=== PATIENT | female | born 1950 | race Caucasian/White ===

== ENCOUNTER 2016-09-24 22:22 | Inpatient (IN) | payer MEDICARE ==
[~2016-09-24] VITALS: Ht 165.1 cm; Wt 86.2 kg
[~2016-09-24 22:22] MED LIST: ATENOLOL (*) 2525 MG PO; ESTR1PAT10 TD; ESTR1POW11 MC; FLONASE; HCTZ25 PO; HYDR1TAB69 PO; LANS15CA24 PO; LRZ.5T1 PO; MULT-1007 PO; [UNRECOGNIZED DRUG - CODE] PO
[2016-09-24 22:27] VITALS: BP 126/67; PULSE 77; RESP 18; O2SAT 97
[2016-09-24] MEDS ORDERED: 0.9% Sodium Chloride 1,000 ML IV ONE (23:19)
[2016-09-24] MEDS ORDERED: HYDROmorphone 1 mg/mL Inj IVPUSH PRN (23:20)
[2016-09-24] MEDS ORDERED: Ondansetron 2 mg/mL 2 mL Inj IVPUSH ONE (23:20)
--- NOTE | 2016-09-24 23:21 | ED.REPORT ---
HPI-Extremity Problem Lower Date of Service Sep 24, 2016 ED Provider: Seth Gonzalez MD A 65 year old female with a medical history including hypertension, spinal stenosis, and GERD presents to the ED via EMS with a right ankle injury after a mechanical ground level fall just prior to arrival. The patient slipped in her kitchen. She denies hitting her head or losing consciousness and has no other complaints at this time. EMS noted an obvious right ankle deformity en route. Nursing Notes Stated Complaint: ANKLE INJURY Chief Complaint: Extremity Trauma Nursing Notes Reviewed: Yes Allergies: Coded Allergies: Penicillins (Verified Allergy, Unknown, 09/24/16) celecoxib (Verified Allergy, Unknown, 09/24/16) Scheduled Atenolol (Atenolol) 25 Mg Tablet 25 MG PO DAILY Estradiol Patch (Isa) 1 Each Patch.tdsw 1 EACH TRANSDERM WEEKLY Hydrochlorothiazide (Hydrochlorothiazide) 25 Mg Tablet 25 MG PO DAILY Lansoprazole (Lansoprazole) 30 Mg Capsule.dr 15 MG PO DAILY Multivitamin (Multivitamins) 1 Each Capsule 1 EACH PO DAILY Trazodone (Trazodone) 150 Mg Tablet 200 MG PO HS Scheduled PRN Fluticasone Propionate (Flonase Allergy Relief) 50 Mcg/Actuation [place].susp 9.9 ML NS BID PRN PRN For Congestion Hydrocodone-Acetaminophen 5-325 mg (Hydrocodone-Acetaminophen 5-325 mg) 1 Each Tablet 1-3 TABLET PO DAILY PRN PRN For Pain Lorazepam (Lorazepam) 1 Mg Tablet 1-1.5 MG PO HS PRN PRN For Insomnia General Time Seen by MD: 22:50 Chief Complaint Ankle injury right Hx Obtained From: Patient Arrived By: Ambulance Onset Occurred: Just prior to arrival Symptom Duration: Since onset Caused by: Accidental, Fall on ground Location: : Ankle right Quality: Painful Severity: Current: Moderate Severity: Maximum: Moderate Associated with: Denies: Fever Pertinent Negative: Relieved by nothing Immunizations: Tetanus w/in 5 - 10 yrs Recent Healthcare: No recent doctor visit Past Medical History Past Medical History Hypertension GERD Insomnia 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 Respiratory: Reports: Non-productive cough (Baseline), Denies: Shortness of breath Physical Exam Physical Exam Notes: Initial Vital Signs Vital Signs (First) Date Time Temp Pulse Resp B/P Pulse Ox O2 Delivery O2 Flow Rate FiO2 09/24/16 22:27 37.0 77 18 126/67 97 Room Air Initial VS: Reviewed Head / Eyes: Atraumatic, Normocephalic ENT: Conjunctiva normal, No scleral icterus Neck: Supple, Full range of motion Skin: Warm, Dry, No cyanosis Neurologic: Alert, Oriented, Nonfocal Psychiatric: Mood/affect normal, Behavior normal, Normal thought content Lower Extremity / Pelvis / MS: Neurologic intact, Vascular intact Ankle / Foot: Neurologic intact, Vascular intact Right Foot: Positive: Deformity present (Grossly laterally displaced, Skin intact), Tenderness present... General/Constitutional: Awake, Alert Interpretation & Diagnostics Lab Results Interpretation Result Diagram: 09/25/16 0550 09/25/16 0550 Test 09/24/16 23:57 Prothrombin Time 11.3sec (8.1-12.5) Prothromb Time International Ratio 1.05ratio Hold [place] Top Tube Received (Received) ECG Interpretation ECG Interpretation: Sinus rhythm rate 90 Anteroseptal infarct, age indeterminant Time: 01:05 Interpreted by: ED physician X-Ray Chest Interpretation Chest Xray Interpretation: Scarring of left pleura, similar to previous Left breast implant View: Portable, 1 view Interpretation / Wet Read by: Wet read ED physician X-Ray Interpretation Xray Interpretation: Bimalleolar fracture with lateral dislocation Study Performed: 3 View X-Ray Ordered: Ankle right Interpretation / Wet Read by: Wet read ED physician Xray Interpretation: Reduction achieved and splint in place Study Performed: 2 View X-Ray Ordered: Ankle right Interpretation / Wet Read by: Wet read ED physician Procedures Procedure Notes: Ankle reduced as described. There was significant force causing dislocation and requiring firm pressure during reduction to allow the cast material to set up. Ultimately, fairly good position was achieved. Neurovascular intact pre-and post. Reduction Dislocated Ankle Right ankle drawn out to length and relocated medially. Held forcibly until cast material was in place to prevent returning to dislocated position. Time: 00:06 Procedure Performed by: ED physician Consent / Setup: Consent from patient, Time-out performed, Pulse oximeter applied, parts processor applied, Hand hygiene observed, Stand sterile technique Which Ankle and Technique: Right ankle Neurovascular: Intact pre-procedure, Intact post-procedure Post-Procedure / Complications: Reduced per examination, Procedure successful, X-ray disloc reduced, Posterior splint applied (Preceded by stirrup), Condition improved, Tolerated procedure well, Patient stable Splint Application - Fx Mgt Time: 00:10 Procedure Performed by: ED physician, Tail Puller Precise Anatomic Location: Right ankle Type of Immobilization: Ortho-glass (Mid-thigh to foot and stirrup), Posterior short leg Post-Procedure / Complications: Cap refill normal, Post splint vascular nl, Post splint neuro nl, Condition improved, Tolerated procedure well, Patient stable Re-Eval/Medical Decision Med Decision/Clinical Course 65-year-old with a bimalleolar fracture and dislocation of the right ankle. Admitted for surgical management. Source of Hx: Old records Re-Evaluation/Progress #1: Time of Eval: 00:06 Patient Status: Condition improved Re-Evaluation/Progress Note: Ankle reduction performed. Re-Evaluation/Progress #2: Time of Eval: 01:06 Patient Status: Condition improved Re-Evaluation/Progress Note: Discussed with patient x-ray and lab results, diagnosis, and plan for admit. Patient agrees with plan for care and all questions were addressed. Consultation #1: Referral / Consult Name: Seth Hargrove MD Consulted With: Orthopedic Call Returned at: 00:45 Bottom Stop Attacher: Will see patient (Tomorrow), Agrees with eval, Agrees with plan Consultation #2: Referral / Consult Name: Rolan Shine MD Consulted With: Hospitalist Call Returned at: 00:51 Bottom Stop Attacher: Agrees with eval, Agrees with plan, Accepts admit Counseled Regarding: Diagnosis, Lab results, Need for admission Discharge & Departure Shift Change Sign-Out Response to Therapy: Improved Impression: Primary Impression: Closed right ankle fracture Encounter type: initial encounter Qualified Code: S82.891A - Other fracture of right lower leg, initial encounter for closed fracture Additional Impression: Dislocation of right ankle joint Encounter type: initial encounter Qualified Code: S93.04XA - Dislocation of right ankle joint, initial encounter Disposition: ADMITTED TO HOSPITAL Discharge Condition All VS Reviewed: Yes Condition: Improved Referrals: Skinny Blackwood MD (PCP) Minal Attestation Portions of this note were transcribed by Vicenta Romero. I, Dr. Gonzalez, personally performed the history, physical exam, and medical decision-making; I reviewed and confirmed the accuracy of the information in the transcribed note. Signed by: Minal Mederos, 09/25/2016, 04:30 copies to: Skinny Blackwood MD, Christopher W MD Sep 24, 2016 23:21 VICENTA ROMERO Sep 25, 2016 00:17 X-Ray Interpretation Xray Interpretation: Bimalleolar fracture with lateral dislocation Study Performed: 3 View X-Ray Ordered: Ankle right Interpretation / Wet Read by: Wet read ED physician Xray Interpretation: Reduction achieved and splint in place Study Performed: 2 View X-Ray Ordered: Ankle right Interpretation / Wet Read by: Wet read ED physician Procedures Reduction Dislocated Ankle Right ankle drawn out to length and relocated medially. Held forcibly until cast material was in place to prevent returning to dislocated position. Time: 00:06 Procedure Performed by: ED physician Consent / Setup: Consent from patient, Time-out performed, Pulse oximeter applied, parts processor applied, Hand hygiene observed, Stand sterile technique Which Ankle and Technique: Right ankle Neurovascular: Intact pre-procedure, Intact post-procedure Post-Procedure / Complications: Reduced per examination, Procedure successful, X-ray disloc reduced, Posterior splint applied (Preceded by stirrup), Condition improved, Tolerated procedure well, Patient stable Splint Application - Fx Mgt Time: 00:10 Procedure Performed by: ED physician, Tail Puller Precise Anatomic Location: Right ankle Type of Immobilization: Ortho-glass (Mid-thigh to foot and stirrup), Posterior short leg Post-Procedure / Complications: Cap refill normal, Post splint vascular nl, Post splint neuro nl, Condition improved, Tolerated procedure well, Patient stable Re-Eval/Medical Decision Source of Hx: Old records Re-Evaluation/Progress #1: Time of Eval: 00:06 Patient Status: Condition improved Re-Evaluation/Progress Note: Ankle reduction performed. Re-Evaluation/Progress #2: Time of Eval: 01:06 Patient Status: Condition improved Re-Evaluation/Progress Note: Discussed with patient x-ray and lab results, diagnosis, and plan for admit. Patient agrees with plan for care and all questions were addressed. Consultation #1: Referral / Consult Name: Seth Hargrove MD Consulted With: Orthopedic Call Returned at: 00:45 Bottom Stop Attacher: Will see patient (Tomorrow), Agrees with eval, Agrees with plan Consultation #2: Referral / Consult Name: Rolan Shine MD Consulted With: Hospitalist Call Returned at: 00:51 Bottom Stop Attacher: Agrees with eval, Agrees with plan, Accepts admit Counseled Regarding: Diagnosis, Lab results, Need for admission Discharge & Departure Impression: Primary Impression: Closed right ankle fracture Encounter type: initial encounter Qualified Code: S82.891A - Other fracture of right lower leg, initial encounter for closed fracture Additional Impression: Dislocation of right ankle joint Encounter type: initial encounter Qualified Code: S93.04XA - Dislocation of right ankle joint, initial encounter Disposition: ADMITTED TO HOSPITAL Discharge Condition All VS Reviewed: Yes Condition: Improved Referrals: Skinny Blackwood MD (PCP) Marieiblars Attestation Portions of this note were transcribed by Vicenta Romero. I, Dr. Gonzalez, personally performed the history, physical exam, and medical decision-making; I reviewed and confirmed the accuracy of the information in the transcribed note. Signed by: Minal Mederos, 09/25/2016, 04:30 copies to: Skinny Blackwood MD, Christopher W MD Sep 24, 2016 23:21 VICENTA ROMERO Sep 25, 2016 00:17
[2016-09-25] VITALS (7 sets, daily range): BP systolic 110–137; BP diastolic 70–89; PULSE 67–113; RESP 16–18; O2SAT 94–96
[2016-09-25 00:07] LABS: BASOPHILS % (AUTO) 0.3 % (0-3); EOSINOPHILS % (AUTO) 0.6 % (0-5); MONOCYTES % (AUTO) 8.3 % (4-12); Mean Corpuscular Hemoglobin 34.6 pg (27.0-35.0); Mean Corpuscular Volume 101.2 fL (81-100); NEUTROPHILS % (AUTO) 63.6 % (40-74); Platelet Count 140 bil/L (150-400)
[2016-09-25 00:34] LABS: INR 1.05 ratio
[2016-09-25] MEDS ORDERED: Polyethylene Glycol (PEG) 17 Gm Powder PO PRN (01:45)
[2016-09-25] MEDS ORDERED: Ondansetron 2 mg/mL 2 mL Inj IVPUSH PRN (01:45)
[2016-09-25] MEDS ORDERED: Alum-Mag Hydrox-Simeth 30 mL Suspension PO PRN (01:45)
[2016-09-25] MEDS: Heparin 5,000 Unit/mL Inj SUBQ SCH ×3 (01:45→18:39)
[2016-09-25] MEDS ORDERED: HYDROmorphone 0.5 mg/0.5 mL iSecure Syringe IVPUSH PRN (01:50)
[2016-09-25] MEDS ORDERED: KCl 40 mEq/D5W 500 mL 40 MEQ in IV Premix 1 EACH IV ONE ×2 (02:20→03:05)
[2016-09-25] MEDS ORDERED: Potassium Chloride 20 mEq SR Tablet PO ONE (02:25)
[2016-09-25] MEDS: 0.9% Sodium Chloride 1,000 ML IV SCH ×3 (02:30→21:45)
--- NOTE | 2016-09-25 02:35 | PCM.HPMED ---
Subjective Date of Service Sep 25, 2016 Primary Provider: Admitting Physician: Rolan Shine MD Primary Care Physician: Skinny Blackwood MD Attending Physician: Rolan Shine MD Admit Status: From the Emergency Department Chief Complaint: right ankle fracture History of Present Illness: 65-year-old female patient with history of hypertension, insomnia, neuropathy, GERD who presented to the ER following mechanical ground-level fall and right ankle pain. Patient reports that she got up in the middle the night to go to her kitchen to get a snack, and was wearing socks and slipped on the linoleum. Patient reports that she suspects she fell to her side and instantly felt significant pain on her right ankle. Patient denies any loss of consciousness at the time of her fall. Patient reports that she does not use any assistive devices for walking, such as a cane or walker. Patient reports that she is independent at baseline, and independent in all of her ADLs. Patient denies any chest pain, shortness of breath, nausea, vomiting, diarrhea, palpitations, dizziness or other symptoms. Patient states her only complaint is right ankle pain. Patient reports that she did take all of her nighttime medications, which include trazodone, lorazepam, gabapentin. Vital signs in the ER, temperature 37, pulse 77, respiratory rate 18, blood pressure 126/67, pulse ox 97 on room air. Review of Systems: A comprehensive review of systems was conducted with the patient and found to be negative except as above in the History of Present Illness. 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 Chronic back pain Chronic opiate use Diverticulosis Cervical spine stenosis Lumbar spine stenosis PUD Squamous cell carcinoma of the face Surgical History Hysterectomy Breast augmentation Deflation of bilateral breast implants Appendectomy Rhinoplasty Zygomatic cheek implants Social History Occupation: disabled Hx Alcohol Use: Yes (12 ounces of wine nightly) Hx Substance Use: No Hx Tobacco Use: Yes (quit over 50 years ago) Smoking Status: Former Smoker Living Arrangement: Alone Exam Vital Signs Vital Sign - Last Date Time Temp Pulse Resp B/P Pulse Ox O2 Delivery O2 Flow Rate FiO2 09/25/16 01:07 36.7 90 18 122/75 94 Room Air Intake and Output 09/24/16 09/24/16 09/25/16 Cumulative From/Thru 15:00 23:00 07:00 09/24/16 22:27 - 09/24/16 23:56 Intake Total 1000 ml 1000 ml Balance 1000 ml 1000 ml Intake IV Total 1000 ml 1000 ml Exam General: No acute distress, well-developed, well-nourished, appropriately interactive HEENT: Normocephalic, atraumatic. Tattooed eyeliner. External ears without defect. Pupils equal, round, and reactive to light and accommodation. Moist conjunctivae. Oropharynx with slightly dry mucosa. Neck: Supple with full range of motion.No lymphadenopathy Cardiovascular: Regular rate and rhythm with no murmurs, rubs, or gallops appreciated Pulmonary: Clear to auscultation bilaterally with no crackles, wheezes, or rhonchi. Normal respiratory effort with no use of accessory muscles. Abdomen: Bowel tones present. Soft, nontender, nondistended. Extremities: Right lower extremity in soft cast with bandages, neurovascularly intact, appropriate capilarry refill, intact sensation. Normal left lower extremity exam. No clubbing, cyanosis, edema, appreciated. Skin: Normal temperature, turgor, and texture; no rash, ulcers, or subcutaneous nodules appreciated. Psychiatric: Normal mood and affect. Alert and oriented to person, place, and time. Lab and Diagnostics Result Diagram: 09/24/16235609/24/162356 X-Rays, CTs and MRIs Right ankle [id number] radiology report pending Chest [id number] radiology report pending 12-lead ECG Normal sinus rhythm, rate of 91 Assessment & Plan Acute closed right ankle fracture secondary to mechanical ground level fall, present on admission, ongoing -EKG was normal, did not demonstrate any arrhythmias. -Patient has remained hemodynamically stable, no evidence of hypotension -Xrays demonstrate fracture. Awaiting formal radiology report on xrays -Ankle was reduced in the ER by ER physician -Ortho was consulted by ER, and will evaluate patient in the AM -Dilaudid prescribed for pain management -NPO in case pt requires surgery -IVF NS 100mls/hr -Physical therapy evaluation ordered Acute hypokalemia, present on admission, ongoing -Potassium 3.2 on admission -40meq KCl IV given -Recheck labs in AM, replenish as appropriate Transaminitis, chronicity unknown, present on admission, ongoing -AST and ALT elevated, 53 & 50 respectively -No records to compare previous values -Continue to monitor with AM labs -Consider avoiding hepatotoxic medications Chronic macrocytosis,present on admission, ongoing -MCV of 101.2 on admission -Records demonstrate elevation in 2013 -May be due to alcohol use -Recommend outpatient follow up Chronic hypertension, present on admission, ongoing, presumed stable. -Restart home medications once medication reconciliation is completed. 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 GERD with history of PUD, present on admission, ongoing, presumed stable. -Restart home medications once medication reconciliation is completed. PCP: Dr Blackwood Code Status: DNR/DNI. Discussed and confirmed with patient DVT prophylaxis: Heparin q 8hrs Patient is admitted under inpatient status with expected length of stay greater than 2 midnights due to severity of presenting symptoms, risk of adverse event, and complexity of treatment plan. Pain Evaluation: Adequate Pain Control VTE Prophylaxis: Sub-Q Heparin (Unfractionated) Resuscitation Status: DNR/DNI:Do Not Resuscitate/Intubate Attending Statement The patient was seen and examined together with Dr. Tang on 09/25 and I agree with the history, exam and plan as outlined in the note above. copies to: Skinny Blackwood MD, Tara L DO Sep 25, 2016 02:35 Rolan Shine MD Sep 25, 2016 04:38
[2016-09-25] MEDS ORDERED: ATEN25TA PO (05:29)
[2016-09-25] MEDS ORDERED: ESTR1PAT44 TRANSDERM (05:31)
[2016-09-25] MEDS ORDERED: FLUT9.9S NS (05:33)
[2016-09-25] MEDS ORDERED: HYDR25TA4 PO (05:38)
[2016-09-25] MEDS ORDERED: HYDR-4003 PO (05:38)
[2016-09-25] MEDS ORDERED: LANS30CA PO (05:39)
[2016-09-25] MEDS ORDERED: LORA1TAB PO (05:40)
[2016-09-25] MEDS ORDERED: MULT1CAP33 PO (05:41)
[2016-09-25] MEDS ORDERED: TRAZ150T72 PO (05:42)
--- NOTE | 2016-09-25 05:54 | NUR ---
admit pt arrived to room 1009 at 0205. she was transferred from [facility] to bed with sliding board. she is alert and oriented x3. on RA and VSS. R leg is splinted and wrapped in otilia wrap. toes are warm, pt can wiggle them and denies numbness and tingling. pt was able to get up to the BSC to void with 1 person assist and using the FWW. she received 1mg of IV dilaudid for pain. patient is receiving potassium via IV. she is currently resting comfortably. NPO for surgery today. care continues.
[2016-09-25 06:20] LABS: BASOPHILS % (AUTO) 0.4 % (0-3); EOSINOPHILS % (AUTO) 0.3 % (0-5); MONOCYTES % (AUTO) 9.2 % (4-12); Mean Corpuscular Hemoglobin 34.9 pg (27.0-35.0); Mean Corpuscular Volume 103.3 fL (81-100); NEUTROPHILS % (AUTO) 67.7 % (40-74); Platelet Count 136 bil/L (150-400)
[2016-09-25] MEDS: fentaNYL-PF 50 mCg/mL 2 mL Inj IVPUSH PRN ×4 (07:25→23:03)
--- NOTE | 2016-09-25 07:29 | PCM.CONORT ---
Subjective Surgeon Admitting Provider:Rolan Shine MD Attending Provider:Rolan Shine MD Primary Care Physician:Skinny Blackwood MD Other Provider: Reason for Consultation: Right ankle pain Allergy Allergies: Coded Allergies: Penicillins (Verified Allergy, Unknown, 09/24/16) celecoxib (Verified Allergy, Unknown, 09/24/16) Medications Atenolol (Atenolol) 25 Mg Tablet 25 MG PO DAILY (Reported) Last Taken: Unknown Dose on 09/24/16 0800 Estradiol Patch (Isa) 1 Each Patch.tdsw 1 EACH TRANSDERM WEEKLY (Reported) Last Taken: Unknown Dose on 09/21/16 Fluticasone Propionate (Flonase Allergy Relief) 50 Mcg/Actuation Richardson.susp 9.9 ML NS BID PRN PRN For Congestion (Reported) Last Taken: Unknown Dose on 09/24/16 0800 Gabapentin (Gabapentin) 600 Mg Tablet 600 MG PO HS (Reported) Last Taken: Unknown Dose on 09/24/16 Hydrochlorothiazide ( Hydrochlorothiazide) 25 Mg Tablet 12.5 MG PO DAILY (Reported) Last Taken: Unknown Dose on 09/24/16 0900 Hydrocodone-Acetaminophen 5-325 mg (Hydrocodone-Acetaminophen 5-325 mg) 1 Each Tablet 1-3 TABLET PO DAILY PRN PRN For Pain (Reported) Last Taken: Unknown Dose on 09/24/16 1600 Lansoprazole (Lansoprazole) 30 Mg Capsule.dr 15 MG PO DAILY (Reported) Last Taken: Unknown Dose on 09/24/16 0800 Lorazepam (Lorazepam) 1 Mg Tablet 1 -1.5 MG PO HS PRN PRN For Insomnia (Reported) Last Taken: Unknown Dose on 09/24/161999 Multivitamin (Multivitamins) 1 Each Capsule 1 EACH PO DAILY (Reported) Last Taken: Unknown Dose on 09/24/16 0800 Trazodone (Trazodone) 150 Mg Tablet 200 MG PO HS (Reported) Last Taken: Unknown Dose on 09/24/161999 Discontinued Medications Atenolol-Expunged Drug, Do Not Renew! (Atenolol-Expunged Drug, Do Not Renew!) 25 Mg Tab 25 MG PO DAILY (Reported) Last Taken: Unknown Dose on 09/24/16 0800 Estradiol Hemihydrt,Micronized ( Estradiol) 1 Gm Powder 1 GM MC DAILY (Reported) Estradiol-Expunged Drug, Do Not Renew! (Sogrqbm-Unr-Lveslxny Drug, Do Not Renew! ) 1 Patch.bwk Patch.tdsw 1 PATCH.BWK TD QW (Reported) Every Tuesdays Last Taken: Unknown Dose on Unknown Date & Time FLUTICASONE-Expunged Drug, Do Not Renew! (FLONASE-Expunged Drug, Do Not Renew!) 120 Sprays/16 Gm Aero 2 SPRAYS NA PRN (Reported) Last Taken: Unknown Dose on 09/24/16 0800 Hydrochlorothiazide-Expunged, Do Not Renew! (Hydrochlorothiazide-Expunged, Do Not Renew!) 25 Mg Tablet 12.5 MG PO DAILY (Reported) Last Taken: Unknown Dose on 09/24/16 0800 Hydrocod/APAP-Expunged, Do Not Renew! (VICODIN-Expunged Drug, Do Not Renew) 1 Tab Tab 1-3 TAB PO DAILY PRN PRN For Pain (Reported) Last Taken: Unknown Dose on 09/24/16 1600 Lansoprazole-Expunged Drug, Do Not Renew! (Lansoprazole-Expunged Drug, Do Not Renew!) 15 Mg Capsule.dr 15 MG PO DAILY (Reported) Last Taken: Unknown Dose on 09/24/16 0800 Lorazepam-Expunged Drug, Do Not Renew! (Lorazepam-Expunged Drug, Do Not Renew!) 0.5 Mg Tab 1-1.5 MG PO HSP ( Reported) Last Taken: Unknown Dose on 09/24/161999 Multivitamin (Multi-Vitamin Daily) 1 Each Tablet 1 EACH PO DAILY (Reported) Last Taken: Unknown Dose on 09/24/16 0800 Trazodone-Expunged Drug, Do Not Renew! (Trazodone-Expunged Drug, Do Not Renew!) 100 Mg Tab 200 MG PO HS ( Reported) Last Taken: Unknown Dose on 09/24/161999 History History of ENT Problems?: Yes HEENT History: Positive for:: Cataracts Hx of Heart Problems?: Yes Cardiovascular History: Positive for:: Hypertension Denies:: Congestive Heart Failure Hx of Respiratory Problem?: No Respiratory History: Denies:: Tuberculosis Hx Neurologic Problems?: No Hx of GI Problems?: Yes Gastrointestinal History: Positive for:: Heartburn ("every once in a while") Hx of Problems?: No HX of Peritoneal Dialysis: No Female Hx: Denies:: Currently Endometriosis Pelvic Inflammatory Problems with Breasts? Hx Musculoskeletal Problems?: Yes Musculoskeletal History: Positive for:: Back Injury (chronic back pain, spinal stenosis, ) Musculoskeletal Trauma (metartasal in R foot) Denies:: Joint Replacement Other History/Comment Lucie Mcguire is a 65-year-old female patient who presents for a orthopedic consult evaluation of their right ankle with ongoing symptoms. The patient states that their pain is a shoulder in nature and mild/moderate in severity localized to the medial and lateral aspect of the ankle without radiation. This has been progressing over the past few hours after she slipped and fell at home. Moreover, the pain is exacerbated by activities, especially with on movement. Rest seems to improve the symptoms. Patient reports some popping, no catching, no locking, or giving way previously. Previous treatment has included : Splint placed in the ER.There is no reports numbness, tingling, or weakness to the affected distal lower extremity. The patient denies any fever, chills, nausea, vomiting, chest pain, shortness of breath, or calf tenderness. Work/ hobbies/sports include: With a home alone She reports a history of electrolyte imbalances and elevated liver enzymes. She reports that she may or may not have had a heart attack in the past Hx of Psycho/Social Problems?: No Hx Surgeries?: Yes (appendectomy, breast modification) Hx Any Other Health Problems?: No Other History: Positive for:: Hospitalization (bleeding ulcers) History Blood Transfusions: Positive for:: Accept Blood Products? Blood Transfusions Denies:: Blood Transfuse Reaction Hx Diabetes: No Occupation: disabled Hx Alcohol Use: Yes (12 ounces of wine nightly)Hx Substance Use: No Smoking Status: Former Smoker Have You Smoked inLast 12 mo: No Objective Exam Vital Signs & I/O Vital Sign- Last 8 Hours Date Time Temp Pulse Resp B/P Pulse Ox O2 Delivery O2 Flow Rate FiO2 09/25/16 04:55 36.7 110 17 125/72 94 Room Air 09/25/16 02:05 36.8 92 17 124/72 94 Room Air 09/25/16 01:07 36.7 90 18 122/75 94 Room Air Intake and Output- Last 8 Hour 09/25/16 Cumulative From/Thru 07:00 09/24/16 22:27 - 09/25/16 04:55 Intake Total 1000 ml 1000 ml Output Total 300 ml 300 ml Balance 700 ml 700 ml Intake Oral 0 ml 0 ml IV Total 1000 ml 1000 ml Output Urine Total 300 ml 300 ml # Bowel Movements 0 0 Lab & Micro Results Laboratory Tests Test 09/24/16 23:57 09/25/16 05:50 White Blood Count 6.6th/mm3 (3.8-10.1) 7.8th/mm3 (3.8-10.1) Red Blood Count 4.16mil/mm3 (3.90-5.20) 3.90mil/mm3 (3.90-5.20) Hemoglobin 14.4g/dL (12.0-15.6) 13.6g/dL (12.0-15.6) Hematocrit 42.1% (35.0-46.0) 40.3% (35.0-46.0) Mean Corpuscular Volume 101.2fL (81-100) 103.3fL (81-100) Mean Corpuscular Hemoglobin 34.6pg (27.0-35.0) 34.9pg (27.0-35.0) Mean Corpuscular Hemoglobin Concent 34.2% (32.0-37.0) 33.7% (32.0-37.0) Red Cell Distribution Width 12.4% (12.3-15.4) 12.5% (12.3-15.4) Platelet Count 140bil/L (150-400) 136bil/L (150-400) Neutrophils (%) (Auto) 63.6% (40-74) 67.7% (40-74) Lymphocytes (%) (Auto) 26.9% (14-46) 22.1% (14-46) Monocytes (%) (Auto) 8.3% (4-12) 9.2% (4-12) Eosinophils (%) (Auto) 0.6% (0-5) 0.3% (0-5) Basophils (%) (Auto) 0.3% (0-3) 0.4% (0-3) Prothrombin Time 11.3sec (8.1-12.5) Prothromb Time International Ratio 1.05ratio Sodium Level 134mEq/L (134-144) 139mEq/L (134-144) Potassium Level 3.2mEq/L (3.5-5.2) 4.1mEq/L (3.5-5.2) Chloride Level 92mEq/L (97-108) 97mEq/L (97-108) Carbon Dioxide Level 26mmol/L (18-29) 27mmol/L (18-29) Blood Urea Nitrogen 11mg/dL (8-27) 10mg/dL (8-27) Creatinine 0.72mg/dL (0.57-1.00) 0.73mg/dL (0.57-1.00) Estimat Glomerular Filtration Rate 116mL/min (>59) 114mL/min (>59) Glucose Level 149mg/dL (60-99) 124mg/dL (60-99) Calcium Level 8.6mg/dL (8.5-10.1) 8.3mg/dL (8.5-10.1) Total Bilirubin 0.5mg/dL (0.0-1.2) 0.8mg/dL (0.0-1.2) Aspartate Amino Transf (AST/SGOT) 53U/L (0-50) 44U/L (0-50) Alanine Aminotransferase (ALT/SGPT) 50U/L (0-32) 45U/L (0-32) Alkaline Phosphatase 66U/L (25-165) 60U/L (25-165) Total Protein 6.8g/dL (6.4-8.4) 6.3g/dL (6.4-8.4) Albumin 4.1g/dL (3.4-5.0) 4.0g/dL (3.4-5.0) Hold Buckley Top Tube Received (Received) Result Diagram: 09/25/1650 09/25/16 0550 Review of Systems: Constitutional: Negative, except as otherwise mentioned in the history above. Ophthalmologic: Negative, except as otherwise mentioned in the history above. Cardiovascular: Negative, except as otherwise mentioned in the history above. Respiratory: Negative, except as otherwise mentioned in the history above. Gastrointestinal: Negative, except as otherwise mentioned in the history above. Genitourinary: Negative, except as otherwise mentioned in the history above. Musculoskeletal: Negative, except as otherwise mentioned in the history above. Neurological: Negative, except as otherwise mentioned in the history above. Psychiatric: Negative, except as otherwise mentioned in the history above. Hematologic/Lymphatic: Negative, except as otherwise mentioned in the history above. Allergic/Immunologic: Negative, except as otherwise mentioned in the history above. H&P Surgical Exam Exam Musculoskeletal: CONST: WD,WN, NAD, A+OX3 OCULAR: EOMI, no conjunctivitis/icterus ENT: no deformities, scars or lesions CARDIAC: Pulse is regular. No cyanosis,clubbing,edema RESP: regular,unlabored MSK: normal light touch SPN/DPN/TN distributions. 5/5 DF/PF/Inv/Ev, 2+ DP Right Foot/Ankle - scars, ++ swelling, + ecchymosis, - atrophy or asymmetry. TTP medial lateral joint line alignment- neutral, gait: antalgic, edema- minimal ROM Strength/ Pain na + effusion, +painful arc, +crepitus Signs na Additional Information Three-view x-ray of the right ankle demonstrates trimalleolar fracture dislocation with reduction. H&P Preop Plan Impression right closed ankle fracture dislocation, trimalleolar Problems: Risks & Benefits * We have reviewed the risks and benefits as well as the alternatives to surgery. All questions were answered to the patient's satisfaction and a counseling note to that effect. The patient has provided informed consent. * I have counseled the patient regarding the deleterious effects that smoking during the perioperative period can have upon wound healing, infection rates, and the overall rate of complications. Plan NWB LLE Encouraged nutrition by mouth today We will change long-leg splint to short leg splint prior to discharge keep elevated Continue medical management per primary Patient to follow up in clinic on Wednesday or of next week cardiac clearance for surgery please Surgery tentatively scheduled for next 10/02/2016 pending soft tissue examination. oral pain meds as needed d/c home and f/u in clinic next week to assess soft tissue swelling plan for ORIF in 1-2 weeks once soft tissue envelope stable please call with questions Seth Hargrove MD Sep 25, 2016 07:29
[2016-09-25 08:04] LABS: APPEARANCE,URINE CLEAR (CLEAR,HAZY); COLOR,URINE YELLOW (YELLOW); PH,URINE 5.5 (5.0-8.0)
[2016-09-25 08:05] LABS: OCCULT BLOOD,URINE NEGATIVE (NEGATIVE); UROBILINOGEN,URINE NORMAL (NORMAL)
[2016-09-25] MEDS ORDERED: GABA600T2 PO (08:30)
--- NOTE | 2016-09-25 09:57 | DRSVH ---
PROCEDURE: X-RAY RIGHT ANKLE, MINIMUM THREE VIEWS ([id number]) INDICATIONS: ankle deformity TECHNIQUE: 3 views of the ankle were acquired. COMPARISON: None. FINDINGS: Bones: Complex, trimalleolar right ankle fracture/dislocation is present with roughly 1/4 bone shaft diameter of lateral subluxation of the talus relative to the tibial plafond. There is moderate later al displacement of the distal fibular fracture component as well as the tip of the medial malleolus. Minimal displacement of the posterior malleolar component. Soft tissues: Joint effusion and circumferential soft tissue swelling. IMPRESSION: Complex trimalleolar right ankle fracture/disloc Dictated by: Ramsey Dixon [facility] Interpreted: Abraham Bustamante MD on 09/25/2016 at 9:55 Transcribed by: PEPPER on 09/25/2016 at 9:57 Approved by: Abraham Bustamante M.D. on 09/25/2016 at 16:21
--- NOTE | 2016-09-25 10:01 | DRSVH ---
PROCEDURE: X-RAY CHEST ONE VIEW, PORTABLE ([id number]) INDICATIONS: fx ankle TECHNIQUE: One view of the chest was acquired. COMPARISON: [facility], CHEST 2VW, 07/02/2016, 11:04 AM. FINDINGS: Surgical changes and devices: Peripherally calcified left breast implant redemonstrated.. Lungs and pleura: No pleural effusions or pneumothorax. Lungs are clear. Mediastinum: Mediastinal contours appear normal. Heart size is normal. Bones and chest wall: No suspicious bony lesions. Overlying soft tissues appear unremarkable. IMPRESSION: No acute cardiopulmonary disease. Dictated by: Ramsey Dixon [facility] Interpreted: Abraham Bustamante MD on 09/25/2016 at 9:59 Transcribed by: PEPPER on 09/25/2016 at 10:01 Approved by: Abraham Bustamante M.D. on 09/25/2016 at 16:21
--- NOTE | 2016-09-25 10:06 | DRSVH ---
PROCEDURE: X-RAY RIGHT ANKLE, TWO VIEWS ([id number]) INDICATIONS: postreduction TECHNIQUE: 3 views of the ankle were acquired. COMPARISON: [facility], CR, XR ANKLE 3VW RT, 09/24/2016, 22:46. FINDINGS: Bones: Fine wendy detail obscured by overlying cast material. Within these limits, improved alignme nt status post closed reduction of trimalleolar right ankle fracture/dislocation. There is continued mild posterior migration of the talus relative to the tibial plafond there is widening of the medial ankle mortise. Soft tissues: No tibiotalar joint effusion. Achilles tendon appears normal. IMPRESSION: Improved alignment. Dictated by: Ramsey Dixon [facility] Interpreted: Abraham Bustamante MD on 09/25/2016 at 10:05 Transcribed by: PEPPER on 09/25/2016 at 10:06 Approved by: Abraham Bustamante M.D. on 09/25/2016 at 16:21
[2016-09-25] MEDS ORDERED: Fluticasone 0.05% 15 Spray/2 Gm 16 Gm Nasal Spray NASAL PRN (10:34)
[2016-09-25] MEDS: HYDROcodone-APAP 5-325 mg Tablet PO PRN ×3 (10:40→19:51)
[2016-09-25] MEDS: Pantoprazole 40 mg ER24 Tablet PO SCH (10:41)
--- NOTE | 2016-09-25 14:27 | PCM.PROC ---
Procedure Note Date of Service: Sep 25, 2016 Pre Procedure Diagnosis: Right trimalleolar ankle fracture/dislocation Post Procedure Diagnosis: Same Procedure: Removal of long leg splint applied in ED and application of short leg posterior and sugar tong splint with plaster. Provider and Reservations Agent: Lázaro Humphrey PA-C and patient's day nurse as assist. Indication for Procedure: Right fractured and dislocated ankle. Patient required change in mobilization to allow mobility of the knee. Findings: Right ankle is moderately swollen and mildly deformed secondary to fracture and incomplete reduction initially at the ED. Procedural Analgesia: None Procedure Details: Patient was advised in detail regarding what was planned and myself and nurse assist practice positioning of the leg and discussed a run-through of the prosthesis. When we were satisfied that all 3 of us involved understood what was to take place the procedure was commenced and took approximately 5-10 minutes to complete. Specimen: None Post Procedure Plan: From orthopedic standpoint patient is prepared at this point for discharge to home by hospitalist service when she is medically stable and her social situation is in place. Dr. Alanis entered the room near the completion of our procedure and was discussing these issues with patient as I left the room. Patient will follow up at [facility] orthopedic clinic next week for check of swelling prior to surgery which is planned for the end of next week. Discharge instructions: Strict nonweightbearing on the right lower extremity. VERY IMPORTANT: Ice and elevate the foot above the heart except for hygiene and meals.. Patient may discontinue elevation for hygiene and meals. Place ice behind the knee 20 minutes on and 20 minutes off for cooling of the foot and ankle area. Patient may use walker or knee scooter for mobility. Continue pain medication as directed and provided by hospitalist service. Follow-up at [facility] orthopedic clinic at 8:45am on , 10/01/2016. Call [facility] orthopedic clinic with any questions or concerns. Lázaro Humphrey PA-C Sep 25, 2016 14:27
--- NOTE | 2016-09-25 14:46 | NUR ---
Case Management: Lora given and explained to pt. at 14:35. Ana DE LA ROSA RN
--- NOTE | 2016-09-25 16:30 | NUR ---
Social Work Initial Assessment: SW met with patient at bedside to discuss discharge plan. Patient resides alone in [place]. Patient pharmacy of choice as [facility]. Patient has no HHC or SNF history. Patient has a knee scooter at home. Patient has AD and SW requested copy. Patient states [payer as [employer]. Patient PCP as [facility]. PT to assess patient for home safety. HHC choice list and resource handbook provided to patient for additional support. SW to follow following therapy eval to determine home needs. SW to follow. PLAN: Home alone. SW to follow pending therapy eval for discharge home recommendations Andree GODFREY
--- NOTE | 2016-09-25 19:51 | NUR ---
Pain Pt reports 10/10 pain, no IV access and unable to give additional [place] at this time. Foot reset and casted w/o pain medication. Pt did great however pain uncontrollable now Spoke to hospitalist, added IVP morphine, this brings patient down to a tolerable 5/10 pain for several hours. Pt encouraged to notify RN when pain is about a 7/10 and not let it get higher. Leg elevated w/ Ice below knee. Call light w/in reach, bed down and in locked position.
--- NOTE | 2016-09-25 22:32 | PCM.PNMED ---
Subjective Date of Service Sep 25, 2016 Subjective Patient was seen during recasting procedure this afternoon. Thereafter her pain was out of control. She states that the fentanyl was not effective. Patient was subsequently given IV morphine with much better pain control Exam Vital Signs Vital Sign - Last Date Time Temp Pulse Resp B/P Pulse Ox O2 Delivery O2 Flow Rate FiO2 09/25/16 19:30 36.4 82 16 110/70 96 Room Air Intake and Output 09/24/16 09/24/16 09/25/16 Cumulative From/Thru 15:00 23:00 07:00 09/24/16 22:27 - 09/25/16 04:55 Intake Total 1000 ml 1000 ml Output Total 300 ml 300 ml Balance 700 ml 700 ml Intake Oral 0 ml 0 ml IV Total 1000 ml 1000 ml Output Urine Total 300 ml 300 ml # Bowel Movements 0 0 Exam General: Patient appears uncomfortable and in pain. HEENT: Head is atraumatic and normocephalic. Eyes: Pupils are equally round and reactive to light and accommodation. Extraocular muscles are intact. Sclera are white, anicteric. Subconjunctival mucosa is pink. Ears and nose are unremarkable. Oropharynx: There is no mucosal lesions, there is no thrush, there is no pharyngitis. Neck: Is supple, there are no nodes, or masses or tenderness. Chest: Is clear to auscultation and percussion. There are no rales, rhonchi, wheezes or rubs. Heart: Rate, rhythm is regular. There is no murmur, rub or gallop. Abdomen: Good bowel sounds are present. Abdomen is obese soft, nontender, no organomegaly or masses were appreciated. Extremities: The right lower extremity is in a cast. Otherwise there is no edema, there is no cellulitis, no rash. Neurologic: There are no focal neurological deficits. Cranial nerves II through XII are intact. There are no sensory or motor deficits. Psychiatric: Patients mood is calm and shows no sign of agitation. Genital: Deferred Rectal: Deferred Lab and Diagnostics Result Diagram: 09/25/16 0550 09/25/16 0550 X-Rays, CTs and MRIs Right ankle [id number] radiology report pending Chest [id number] radiology report pending 12-lead ECG Normal sinus rhythm, rate of 91 Assessment & Plan Acute closed right ankle fracture secondary to mechanical ground level fall, present on admission, ongoing -EKG was normal, did not demonstrate any arrhythmias. -Patient has remained hemodynamically stable, no evidence of hypotension -Xrays demonstrate a complex, trimalleolar right ankle fracture/dislocation is present with roughly 1/4 bone shaft diameter of lateral subluxation of the talus relative to the tibial plafond. There is moderate lateral displacement of the distal fibular fracture component as well as the tip of the medial malleolus. Minimal displacement of the posterior malleolar component. Repeat x -ray showed improved alignment -Ankle was reduced in the ER by ER physician -Ortho was consulted and will follow their recommendations -IV fentanyl was not effective in controlling the patient's pain. However IV morphine appeared to control the patient's pain. -Regular diet as tolerated -We will change IVF NS 100mls/hr to 0.9 normal saline with 20 mEq of KCl at 75 mL an hour for maintenance fluid. -Physical therapy evaluation ordered. Patient lives alone and is in considerable pain. Acute hypokalemia, present on admission, ongoing -Potassium 3.2 on admission this has been corrected -40meq KCl IV given -Recheck labs in AM as patient has been on normal saline at 100 mL an hour, replenish as appropriate Transaminitis, chronicity unknown, present on admission, ongoing and resolving -AST and ALT still slightly elevated but improved -No records to compare previous values -Continue to monitor with AM labs Chronic macrocytosis,present on admission, ongoing -MCV of 101.2 on admission -Records demonstrate elevation in 2012 -May be due to alcohol use -Recommend outpatient follow up Chronic hypertension, present on admission, ongoing, presumed stable. -Restart home medications once medication reconciliation is completed. 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 -Restart home medications PCP: Dr Blackwood who has a pain medicine contract with the patient. Patient is not to have any narcotics prescribed by any other doctor. Code Status: DNR/DNI. Discussed and confirmed with patient DVT prophylaxis: Heparin q 8hrs Patient was admitted under inpatient status with expected length of stay greater than 2 midnights due to severity of presenting symptoms, risk of adverse event, and complexity of treatment plan. However, according to case management she did not be admission criteria and her status was changed to observation. Pain Evaluation: Adequate Pain Control GI Prophylaxis: Proton Pump Inhibitor VTE Prophylaxis: Sub-Q Heparin (Unfractionated) Resuscitation Status: DNR/DNI:Do Not Resuscitate/Intubate Seth Alanis MD Sep 25, 2016 22:32
[2016-09-25] MEDS: LORazepam 1 mg Tablet PO PRN (23:03)
[2016-09-26] MEDS: Heparin 5,000 Unit/mL Inj SUBQ SCH ×4 (01:02→23:12)
[2016-09-26] MEDS: 0.9% NaCl + KCl 20 mEq/L 1,000 ML IV SCH ×2 (01:02→14:59)
[2016-09-26 04:54] VITALS: BP 116/79; PULSE 82; RESP 16; O2SAT 93
[2016-09-26 06:30] LABS: BASOPHILS % (AUTO) 0.4 % (0-3)
[2016-09-26 06:32] LABS: MONOCYTES % (AUTO) 10.7 % (4-12); Mean Corpuscular Hemoglobin 34.3 pg (27.0-35.0); Mean Corpuscular Volume 99.2 fL (81-100); NEUTROPHILS % (AUTO) 53.5 % (40-74); Platelet Count 134 bil/L (150-400)
[2016-09-26 06:51] LABS: Magnesium 2.3 mg/dL (1.6-2.6)
--- NOTE | 2016-09-26 07:41 | NUR ---
Ankle pain Rated 3 at rest this morning. Assisted to bathroom - unsteady at times with use of walker. Also uses scooter in room. Ortho checks intact. RLE warm / pink toes slightly swollen. Needs frequent reminders overnight to keep leg elevated. Plan for PT to eval and treat. Stable, continue with plan of care.
[2016-09-26] MEDS: HYDROcodone-APAP 5-325 mg Tablet PO PRN ×4 (08:13→21:37)
[2016-09-26] MEDS: Pantoprazole 40 mg ER24 Tablet PO SCH (08:14)
--- NOTE | 2016-09-26 09:08 | NUR ---
Evaluation completed. Please go to "Notes" then click on "Assessments and Notes" (bottom left corner of screen). Then select appropriate discipline tab on top of screen.
[2016-09-26 09:11] VITALS: BP 131/80; PULSE 81; RESP 16; O2SAT 95
[2016-09-26] MEDS ORDERED: Potassium Chloride 20 mEq SR Tablet PO ONE (09:15)
[2016-09-26 13:35] VITALS: BP 135/79; PULSE 84; RESP 16; O2SAT 96
--- NOTE | 2016-09-26 14:03 | PCM.CONORT ---
Subjective Date of Surgery: Sep 26, 2016 Surgeon Admitting Provider:Rolan Shine MD Attending Provider:Rolan Shine MD Primary Care Physician:Skinny Blackwood MD Orthopedic surgeon: Seth Hargrove M.D. Reason for Consultation: The patient is a 65-year-old woman sustained a closed right ankle trimalleolar fracture dislocation 09/24/2016 and is undergoing management for that injury, directed by Seth Hargrove M.D. The patient had a significant amount of swelling about the right ankle after her injury and Dr. Hargrove is appropriately awaiting improvement of the patient's ankle soft tissue envelope before proceeding with definitive plans for open reduction and internal fixation of the patient's right ankle trimalleolar fracture, hopefully later in the coming week. The patient was originally placed and then replaced into a right short leg posterior splint after her injury, but attempts to improve the position of the patient's right ankle fracture have not been successful. I have been asked to reassess the patient's right ankle positioning by Dr. Alanis, the patient's attending Hospitalist. The patient is not reporting increasing ankle pain or neurovascular symptomatology. She has been trying to keep her ankle elevated and iced since the injury. Allergy Allergies: Coded Allergies: Penicillins (Verified Allergy, Unknown, 09/24/16) celecoxib (Verified Allergy, Unknown, 09/24/16) Medications Atenolol (Atenolol) 25 Mg Tablet 25 MG PO DAILY (Reported) Last Taken: Unknown Dose on 09/24/16 0800 Estradiol Patch (Isa) 1 Each Patch.tdsw 1 EACH TRANSDERM WEEKLY (Reported) Last Taken: Unknown Dose on 09/21/16 Fluticasone Propionate (Flonase Allergy Relief) 50 Mcg/Actuation Outing.susp 9.9 ML NS BID PRN PRN For Congestion (Reported) Last Taken: Unknown Dose on 09/24/16 0800 Gabapentin (Gabapentin) 600 Mg Tablet 600 MG PO HS (Reported) Last Taken: Unknown Dose on 09/24/16 Hydrochlorothiazide ( Hydrochlorothiazide) 25 Mg Tablet 12.5 MG PO DAILY (Reported) Last Taken: Unknown Dose on 09/24/16 0900 Hydrocodone-Acetaminophen 5-325 mg (Hydrocodone-Acetaminophen 5-325 mg) 1 Each Tablet 1-3 TABLET PO DAILY PRN PRN For Pain (Reported) Last Taken: Unknown Dose on 09/24/16 1600 Lansoprazole (Lansoprazole) 30 Mg Capsule.dr 15 MG PO DAILY (Reported) Last Taken: Unknown Dose on 09/24/16 0800 Lorazepam (Lorazepam) 1 Mg Tablet 1 -1.5 MG PO HS PRN PRN For Insomnia (Reported) Last Taken: Unknown Dose on 09/24/161999 Multivitamin (Multivitamins) 1 Each Capsule 1 EACH PO DAILY (Reported) Last Taken: Unknown Dose on 09/24/16 0800 Trazodone (Trazodone) 150 Mg Tablet 200 MG PO HS (Reported) Last Taken: Unknown Dose on 09/24/161999 Discontinued Medications Atenolol-Expunged Drug, Do Not Renew! (Atenolol-Expunged Drug, Do Not Renew!) 25 Mg Tab 25 MG PO DAILY (Reported) Last Taken: Unknown Dose on 09/24/16 0800 Estradiol Hemihydrt,Micronized ( Estradiol) 1 Gm Powder 1 GM MC DAILY (Reported) Estradiol-Expunged Drug, Do Not Renew! (Qgrjbpw-Bft-Gqixqlel Drug, Do Not Renew! ) 1 Patch.bwk Patch.tdsw 1 PATCH.BWK TD QW (Reported) Every Tuesdays Last Taken: Unknown Dose on Unknown Date & Time FLUTICASONE-Expunged Drug, Do Not Renew! (FLONASE-Expunged Drug, Do Not Renew!) 120 Sprays/16 Gm Aero 2 SPRAYS NA PRN (Reported) Last Taken: Unknown Dose on 09/24/16 0800 Hydrochlorothiazide-Expunged, Do Not Renew! (Hydrochlorothiazide-Expunged, Do Not Renew!) 25 Mg Tablet 12.5 MG PO DAILY (Reported) Last Taken: Unknown Dose on 09/24/16 0800 Hydrocod/APAP-Expunged, Do Not Renew! (VICODIN-Expunged Drug, Do Not Renew) 1 Tab Tab 1-3 TAB PO DAILY PRN PRN For Pain (Reported) Last Taken: Unknown Dose on 09/24/16 1600 Lansoprazole-Expunged Drug, Do Not Renew! (Lansoprazole-Expunged Drug, Do Not Renew!) 15 Mg Capsule.dr 15 MG PO DAILY (Reported) Last Taken: Unknown Dose on 09/24/16 0800 Lorazepam-Expunged Drug, Do Not Renew! (Lorazepam-Expunged Drug, Do Not Renew!) 0.5 Mg Tab 1-1.5 MG PO HSP ( Reported) Last Taken: Unknown Dose on 09/24/161999 Multivitamin (Multi-Vitamin Daily) 1 Each Tablet 1 EACH PO DAILY (Reported) Last Taken: Unknown Dose on 09/24/16 0800 Trazodone-Expunged Drug, Do Not Renew! (Trazodone-Expunged Drug, Do Not Renew!) 100 Mg Tab 200 MG PO HS ( Reported) Last Taken: Unknown Dose on 09/24/161999 History History of ENT Problems?: Yes HEENT History: Positive for:: Cataracts Hx of Heart Problems?: Yes Cardiovascular History: Positive for:: Hypertension Denies:: Congestive Heart Failure Hx of Respiratory Problem?: No Respiratory History: Denies:: Tuberculosis Hx Neurologic Problems?: No Hx of GI Problems?: Yes Gastrointestinal History: Positive for:: Heartburn ("every once in a while") Hx of Problems?: No HX of Peritoneal Dialysis: No Female Hx: Denies:: Currently Endometriosis Pelvic Inflammatory Problems with Breasts? Hx Musculoskeletal Problems?: Yes Musculoskeletal History: Positive for:: Back Injury (chronic back pain, spinal stenosis, ) Musculoskeletal Trauma (metartasal in R foot) Denies:: Joint Replacement Hx of Psycho/Social Problems?: No Hx Surgeries?: Yes (appendectomy, breast modification) Hx Any Other Health Problems?: No Other History: Positive for:: Hospitalization (bleeding ulcers) History Blood Transfusions: Positive for:: Accept Blood Products? Blood Transfusions Denies:: Blood Transfuse Reaction Hx Diabetes: No Occupation: disabled Hx Alcohol Use: Yes (12 ounces of wine nightly)Hx Substance Use: No Smoking Status: Former Smoker Have You Smoked inLast 12 mo: No Objective Exam Objective Imaging Patient Name: YEHUDA GARIBAY MR#: [id number] Location: [facility] [place] Ordering Phys: Seth Gonzalez MD Date of Service: 09/25/160 PROCEDURE: X-RAY RIGHT ANKLE, TWO VIEWS ([id number]) INDICATIONS: postreduction TECHNIQUE: 3 views of the ankle were acquired. COMPARISON: [facility], CR, XR ANKLE 3VW RT, 09/24/2016, 22:46. FINDINGS: Bones: Fine wendy detail obscured by overlying cast material. Within these limits, improved alignment status post closed reduction of trimalleolar right ankle fracture/dislocation. There is continued mild posterior migration of the talus relative to the tibial plafond there is widening of the medial ankle mortise. Soft tissues: No tibiotalar joint effusion. Achilles tendon appears normal. IMPRESSION: Improved alignment. Dictated by: Ramsey Dixon RRA Interpreted: Abraham Bustamante MD on 09/25/2016 at 10: 05 Transcribed by: PEPPER on 09/25/2016 at 10:06 Approved by: Abraham Bustamante M.D. on 09/25/2016 at 16:21 Vital Signs & I/O Vital Sign- Last 8 Hours Date Time Temp Pulse Resp B/P Pulse Ox O2 Delivery O2 Flow Rate FiO2 09/26/16 13:35 36.6 84 16 135/79 96 Room Air 09/26/16 09:11 37.2 81 16 131/80 95 Room Air Intake and Output- Last 8 Hour 09/26/16 Cumulative From/Thru 07:00 09/24/16 22:27 - 09/26/16 05:20 Intake Total 1125 ml 3895 ml Output Total 350 ml 1250 ml Balance 775 ml 2645 ml Intake Oral 800 ml 1800 ml IV Total 325 ml 2095 ml Output Urine Total 350 ml 1250 ml # Voids 1 3 # Bowel Movements 0 Lab & Micro Results Laboratory Tests Test 09/26/16 06:00 White Blood Count 5.0th/mm3 (3.8-10.1) Red Blood Count 3.62mil/mm3 (3.90-5.20) Hemoglobin 12.4g/dL (12.0-15.6) Hematocrit 35.9% (35.0-46.0) Mean Corpuscular Volume 99.2fL (81-100) Mean Corpuscular Hemoglobin 34.3pg (27.0-35.0) Mean Corpuscular Hemoglobin Concent 34.5% (32.0-37.0) Red Cell Distribution Width 12.9% (12.3-15.4) Platelet Count 134bil/L (150-400) Neutrophils (%) (Auto) 53.5% (40-74) Lymphocytes (%) (Auto) 34.2% (14-46) Monocytes (%) (Auto) 10.7% (4-12) Eosinophils (%) (Auto) 1.0% (0-5) Basophils (%) (Auto) 0.4% (0-3) Sodium Level 137mEq/L (134-144) Potassium Level 3.7mEq/L (3.5-5.2) Chloride Level 99mEq/L (97-108) Carbon Dioxide Level 28mmol/L (18-29) Blood Urea Nitrogen 6mg/dL (8-27) Creatinine 0.58mg/dL (0.57-1.00) Estimat Glomerular Filtration Rate 149mL/min (>59) Glucose Level 116mg/dL (60-99) Calcium Level 8.0mg/dL (8.5-10.1) Magnesium Level 2.3mg/dL (1.6-2.6) Total Bilirubin 0.8mg/dL (0.0-1.2) Aspartate Amino Transf (AST/SGOT) 25U/L (0-50) Alanine Aminotransferase (ALT/SGPT) 30U/L (0-32) Alkaline Phosphatase 53U/L (25-165) Total Protein 5.5g/dL (6.4-8.4) Albumin 3.4g/dL (3.4-5.0) Result Diagram: 09/26/16 0600 09/26/16 0600 Review of Systems: Constitutional: Negative, except as otherwise mentioned in the history above. Ophthalmologic: Negative, except as otherwise mentioned in the history above. Cardiovascular: Negative, except as otherwise mentioned in the history above. Respiratory: Negative, except as otherwise mentioned in the history above. Gastrointestinal: Negative, except as otherwise mentioned in the history above. Genitourinary: Negative, except as otherwise mentioned in the history above. Musculoskeletal: Negative, except as otherwise mentioned in the history above. Neurological: Negative, except as otherwise mentioned in the history above. Psychiatric: Negative, except as otherwise mentioned in the history above. Hematologic/Lymphatic: Negative, except as otherwise mentioned in the history above. Allergic/Immunologic: Negative, except as otherwise mentioned in the history above. H&P Surgical Exam Exam General: Alert, Oriented X3, No Acute Distress Musculoskeletal: Right lower extremity: Well-padded short leg posterior splint in position. The right ankle however is in valgus position and significantly externally rotated. There is moderate dependent edema and swelling of the toes. There is no proximal leg swelling or tenderness. No tenderness, swelling or effusion of the knee. Neurovascular: The patient can exhibit weak toe dorsiflexion and plantarflexion. Sensation in superficial peroneal and deep peroneal distribution is grossly intact to light touch. Capillary refill of the toes is intact. H&P Preop Plan Impression Right trimalleolar fracture dislocation and associated significant soft tissue envelope swelling with persistent deformity and ankle subluxation following previous attempts at closed reduction. Problems: Risks & Benefits * We have reviewed the risks and benefits as well as the alternatives to surgery. All questions were answered to the patient's satisfaction and a counseling note to that effect. The patient has provided informed consent. * I have counseled the patient regarding the deleterious effects that smoking during the perioperative period can have upon wound healing, infection rates, and the overall rate of complications. Plan I have reviewed the diagnosis and findings with the patient and would recommend that we attempt to reduce, or at least improve, her unstable and displaced right ankle fracture dislocation under an anesthetic in order to help reduce the risk for further soft tissue compromise while she is awaiting her definitive surgery to be performed by . We reviewed the potential risks and benefits of the proposed procedure including, but not limited to, discussions involving infection, bleeding, neurovascular injury, stiffness, weakness, hypersensitivity and reflex sympathetic dystrophy, incomplete relief of symptomatology and recurrence. We also discussed general medical complications including, but not limited to, stroke, myocardial infarction, cardiorespiratory arrest, generalized infection or sepsis, deep vein thrombosis and pulmonary embolism and exacerbation of pre-existing medical comorbidities. Theo Sainz MD Sep 26, 2016 14:03
--- NOTE | 2016-09-26 15:18 | NUR ---
choice list given. Roro Messina MSW
--- NOTE | 2016-09-26 15:19 | NUR ---
Social Work- continued discharge planning Data: EMR reviewed. Pt is on day 1 of hospitalization for fracture dislocation of the right ankle per H&P. Pt will be returning to OR tomorrow, anticipates hospitalization of multiple more days. SW met with pt regarding financial questions about observation status. SW encouraged patient to contact insurance company directly with questions about her contract. SW also referred pt to ESTRELLA RN for further explanation about inpatient vs. observation status. Pt expressed concern about care at home. SW explained role of HH and role of private pay assistance. SW encouraged pt to think about available support system for homecare going forward (neighbors, friends, etc). Pt amenable to this. PT recommending home with HH PT at this time. SW offered to make HH referral, patient declined. SW to follow up regarding this matter. Social Work continues to follow for discharge needs. Assessment: Pt who would benefit from HH PT services. Plan: SW to follow up regarding HH decision. ESTRELLA RN to follow up regarding questions about observation status. SW continues to follow. EPIFANIO Damon
--- NOTE | 2016-09-26 16:12 | NUR ---
Inpatient status effective today, IDALIA signed.
--- NOTE | 2016-09-26 18:17 | NUR ---
Pain P: Pt continued to require IV Morphine in addition to PO Vicodin to control pain. I: notified, Vicodin dose increased to [address] Sainz consulted and decision made with Lázaro Hartmann PA-c to do a closed reduction of the ankle in the OR under sedation tomorrow. E: Pain better controlled with the 2 tablets of Vicodin. Pt has not required any additional IV coverage. NPO at midnight.
[2016-09-26 18:33] VITALS: BP 124/80; PULSE 98; RESP 16; O2SAT 96
--- NOTE | 2016-09-26 18:34 | PCM.PNMED ---
Subjective Date of Service Sep 26, 2016 Subjective The patient is feeling a little bit better however, she complains that her foot is now deviating again laterally and she is unable to straighten it. She is discouraged as this has occurred despit being in a cast/splint that was redone yesterday for the same reason. She stated that the re-casting or replacement of splint was extremely painful and does not want to go through it again. Exam Vital Signs Vital Sign - Last Date Time Temp Pulse Resp B/P Pulse Ox O2 Delivery O2 Flow Rate FiO2 09/26/16 13:35 36.6 84 16 135/79 96 Room Air Intake and Output 09/25/16 09/25/16 09/26/16 Cumulative From/Thru 15:00 23:00 07:00 09/24/16 22:27 - 09/26/16 05:20 Intake Total 1770 ml 1125 ml 3895 ml Output Total 600 ml 350 ml 1250 ml Balance 1170 ml 775 ml 2645 ml Intake Oral 1000 ml 800 ml 1800 ml IV Total 770 ml 325 ml 2095 ml Output Urine Total 600 ml 350 ml 1250 ml # Voids 2 1 3 # Bowel Movements 0 Exam General: Patient appears more comfortable and in less pain today. However, she is concerned about her right lower extremity. HEENT: Head is atraumatic and normocephalic. Eyes: Pupils are equally round and reactive to light and accommodation. Extraocular muscles are intact. Sclera are white, anicteric. Subconjunctival mucosa is pink. Ears and nose are unremarkable. Oropharynx: There is no mucosal lesions, there is no thrush, there is no pharyngitis. Neck: Is supple, there are no nodes, or masses or tenderness. Chest: Is clear to auscultation and percussion. There are no rales, rhonchi, wheezes or rubs. Heart: Rate, rhythm is regular. There is no murmur, rub or gallop. Abdomen: Good bowel sounds are present. Abdomen is obese soft, nontender, no organomegaly or masses were appreciated. Extremities: The right lower extremity is in a cast. The toes are now not lined up with her knee and her deviating laterally. She has full motion of her toes. Her toes remained well perfused. Otherwise there is no edema, there is no cellulitis, no rash. Neurologic: There are no focal neurological deficits. Cranial nerves II through XII are intact. There are no sensory or motor deficits. Psychiatric: Patients mood is calm and shows no sign of agitation. Genital: Deferred Rectal: Deferred Lab and Diagnostics Result Diagram: 09/26/16 0600 09/26/16 0600 X-Rays, CTs and MRIs Right ankle [id number] radiology report pending Chest [id number] radiology report pending 12-lead ECG Normal sinus rhythm, rate of 91 Assessment & Plan Acute closed right ankle fracture secondary to mechanical ground level fall, present on admission, ongoing -EKG was normal, did not demonstrate any arrhythmias. -Patient has remained hemodynamically stable, no evidence of hypotension -Xrays demonstrate a complex, trimalleolar right ankle fracture/dislocation is present with roughly 1/4 bone shaft diameter of lateral subluxation of the talus relative to the tibial plafond. There is moderate lateral displacement of the distal fibular fracture component as well as the tip of the medial malleolus. Minimal displacement of the posterior malleolar component. Repeat x -ray showed improved alignment -Ankle was reduced in the ER by ER physician -Ortho was consulted and placed a new cast/splint yesterday. However the right foot appears to be deviated laterally again in comparison to the remainder of the right lower extremity. I re-consulted orthopedics Dr. Theo Sainz was certified low vision therapist. Dr. Theo Sainz was kind enough to see the patient reviewed the x- rays and go over the case with myself and the patient. It was decided that the patient would need to go to the operating room tomorrow for closed reduction and casting of the right lower extremity ankle fracture. -IV fentanyl was not effective in controlling the patient's pain. However IV morphine appeared to control the patient's pain. -Regular diet as tolerated and then nothing by mouth after midnight. -We will change IVF NS 100mls/hr to 0.9 normal saline with 20 mEq of KCl at 75 mL an hour for maintenance fluid as patient will be nothing by mouth after midnight.. -Physical therapy evaluation ordered. Patient lives alone and is in considerable pain. She has a pain contract with her primary care physician. Acute hypokalemia, present on admission, ongoing -Potassium 3.2 on admission this has been corrected -40meq KCl IV given -Recheck labs in AM as patient has been on normal saline at 100 mL an hour, replenish as appropriate Transaminitis, chronicity unknown, present on admission, ongoing and resolving -AST and ALT normalized -No records to compare previous values -Continue to monitor with AM labs Chronic macrocytosis,present on admission, ongoing -MCV of 101.2 on admission now slightly improved. -Records demonstrate elevation in 2013 -May be due to alcohol use -Recommend outpatient follow up Chronic hypertension, present on admission, ongoing, presumed stable. - Continue atenolol and hydrochlorothiazide. - We will monitor electrodes closely. 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 - Continue proton pump inhibitor Protonix. PCP: Dr Blackwood who has a pain medicine contract with the patient. Patient is not to have any narcotics prescribed by any other doctor. Code Status: DNR/DNI. Discussed and confirmed with patient DVT prophylaxis: Heparin q 8hrs Disposition: Patient is to go to the operating room tomorrow for closed reduction of trimalleolar right ankle fracture with avulsion. Appreciate Dr. Sainz' help. Pain Evaluation: Adequate Pain Control GI Prophylaxis: Proton Pump Inhibitor VTE Prophylaxis: Sub-Q Heparin (Unfractionated) Resuscitation Status: DNR/DNI:Do Not Resuscitate/Intubate Seth Alanis MD Sep 26, 2016 18:34
[2016-09-26 20:04] VITALS: BP 126/81; PULSE 87; RESP 18; O2SAT 94
[2016-09-26] MEDS: LORazepam 1 mg Tablet PO PRN (22:43)
[2016-09-27] VITALS (12 sets, daily range): BP systolic 114–153; BP diastolic 65–91; PULSE 65–90; RESP 12–22; O2SAT 93–100
--- NOTE | 2016-09-27 00:08 | NUR ---
PAIN; Vicodin 2 tabs for pain with fair relief; pt stated needed more pain rx, m.s. iv 1mg given with effectiveness. Addendum: 09/27/16 at 0022 by GEOVANY CRAWFORD RN NPO; after midnight except for meds.
[2016-09-27] MEDS: 0.9% NaCl + KCl 20 mEq/L 1,000 ML IV SCH ×2 (02:20→16:18)
[2016-09-27] MEDS: HYDROcodone-APAP 5-325 mg Tablet PO PRN ×3 (04:51→22:10)
[2016-09-27 06:22] LABS: BASOPHILS % (AUTO) 0.5 % (0-3); MONOCYTES % (AUTO) 10.8 % (4-12); Mean Corpuscular Hemoglobin 34.4 pg (27.0-35.0); NEUTROPHILS % (AUTO) 54.2 % (40-74); Platelet Count 106 bil/L (150-400)
[2016-09-27 06:34] LABS: Magnesium 1.9 mg/dL (1.6-2.6)
[2016-09-27] MEDS ORDERED: Propofol 10,000 mCg/mL 20 mL Inj ONE (06:34)
[2016-09-27] MEDS: Pantoprazole 40 mg ER24 Tablet PO SCH (07:30)
[2016-09-27] MEDS: Ondansetron 2 mg/mL 2 mL Inj IVPUSH PRN ×3 (09:03→18:21)
[2016-09-27] MEDS: Heparin 5,000 Unit/mL Inj SUBQ SCH ×2 (09:06→16:27)
--- NOTE | 2016-09-27 10:43 | PCM.HPANE ---
Patient Data Surgeon Admitting Provider:Rolan Shine MD Attending Provider:Rolan Shine MD Primary Care Physician:Skinny Blackwood MD Other Provider: Reason for Visit Fracture Dislocation Right Ankle FRACTURE DISLOCATION RIGHT ANKLE Ht/WT & BMI Height (Feet): 5 Height (Inches): 5.00 Weight (Kilograms): 86.200 Body Mass Index 31.66 Allergies Coded Allergies: Penicillins (Verified Allergy, Unknown, 09/24/16) celecoxib (Verified Allergy, Unknown, 09/24/16) Past Anesthesia History Anesthesia History: Denies:: Anesthesia Reactions Diabetes History Hx Diabetes?: No MRSA MRSA: No Medications Reported Medications Gabapentin 600 Mg Rdesnl215 Mg PO HS Ref 0 09/25/16 Trazodone 150 Mg Sltrsw296 Mg PO HS Ref 0 09/25/16 Multivitamin (Multivitamins)1 Each Capsule1 Each PO DAILY 09/25/16 Lorazepam 1 Mg Tablet1-1.5 Mg PO HS PRN For Insomnia Ref 0 09/25/16 Lansoprazole 30 Mg Capsule.dr15 Mg PO DAILY #30 CAPSULE Ref 0 09/25/16 Hydrocodone-Acetaminophen 5-325 mg 1 Each Tablet1-3 Tablet PO DAILY PRN For Pain Ref 0 09/25/16 Hydrochlorothiazide 25 Mg Fmlusn94.5 Mg PO DAILY 30 Days Ref 0 09/25/16 Fluticasone Propionate (Flonase Allergy Relief)50 Mcg/Actuation [place].susp9.9 Ml NS BID PRN For Congestion 09/25/16 Estradiol Patch (Isa)1 Each Patch.tdsw1 Each TRANSDERM WEEKLY 09/25/16 Atenolol 25 Mg Vimajr09 Mg PO DAILY #30 TABLET Ref 0 09/25/16 Discontinued Reported Medications Trazodone-Expunged Drug, Do Not Renew! 100 Mg Rhl677 Mg PO HS #30 TAB 10/24/12 FLUTICASONE-Expunged Drug, Do Not Renew! (FLONASE-Expunged Drug, Do Not Renew!) 120 Sprays/16 Gm Aero2 Sprays NA PRN 10/24/12 Hydrocod/APAP-Expunged, Do Not Renew! (VICODIN-Expunged Drug, Do Not Renew)1 Tab Tab1-3 Tab PO DAILY PRN For Pain 10/24/12 Hydrochlorothiazide-Expunged, Do Not Renew! 25 Mg Xwikfr25.5 Mg PO DAILY 10/24/12 Lorazepam-Expunged Drug, Do Not Renew! 0.5 Mg Tab1-1.5 Mg PO HSP 10/24/12 Estradiol-Expunged Drug, Do Not Renew! (Eqbbeba-Fzc-Kwmgaspt Drug, Do Not Renew! )1 Patch.bwk Patch.tdsw1 Patch.bwk TD QW Every Tuesdays10/24/12 Lansoprazole-Expunged Drug, Do Not Renew! 15 Mg Capsule.dr15 Mg PO DAILY 10/24/12 Multivitamin (Multi-Vitamin Daily)1 Each Tablet1 Each PO DAILY 10/24/12 Atenolol-Expunged Drug, Do Not Renew! 25 Mg Tab25 Mg PO DAILY 10/24/12 Estradiol Hemihydrt,Micronized (Estradiol)1 Gm Powder1 Gm MC DAILY 10/24/12 History History of ENT Problems?: Yes HEENT History: Positive for:: Cataracts Hx of Heart Problems?: Yes Cardiovascular History: Positive for:: Hypertension Denies:: Congestive Heart Failure Hx of Respiratory Problem?: No Respiratory History: Denies:: Tuberculosis Hx Neurologic Problems?: No Hx of GI Problems?: Yes Gastrointestinal History: Positive for:: Heartburn ("every once in a while") Hx of Problems?: No HX of Peritoneal Dialysis: No Female Hx: Denies:: Currently Endometriosis Pelvic Inflammatory Problems with Breasts? Hx Musculoskeletal Problems?: Yes Musculoskeletal History: Positive for:: Back Injury (chronic back pain, spinal stenosis, ) Musculoskeletal Trauma (metartasal in R foot) Denies:: Joint Replacement Hx of Psycho/Social Problems?: No Hx Surgeries?: Yes (appendectomy, breast modification) Hx Any Other Health Problems?: No Other History: Positive for:: Hospitalization (bleeding ulcers) History Blood Transfusions: Positive for:: Accept Blood Products? Blood Transfusions Denies:: Blood Transfuse Reaction Hx Diabetes: No Occupation: disabled Hx Alcohol Use: Yes (12 ounces of wine nightly)Hx Substance Use: No Smoking Status: Former Smoker Have You Smoked inLast 12 mo: No Stop/Bang Treated for Sleep Apnea?: No Do You Have a CPAP Machine?: No S-Snoring: Do You Snore Loudly: Yes T-Tired: feel tired, fatigued: Yes O-Obsered: Observed not breath: No P-Blood Pressure: treated: Yes B- Body Mass Index > 35 kg/m2: No A- Age over 50: Yes N- Neck Large Circumference: No G- Gender Male: No HERMAN Total Score: 3 HERMAN Risk Assessment: High Risk, =/>3 Yes HERMAN Category 2: Yes Risk Assessment Category Category 1A: Patient has history of documented sleep apnea, and HAS NOT received any narcotic, sedative or anesthesia administration during this stay. Category 1B: Patient has history of documented sleep apnea, and HAS received any narcotic , sedative or anesthesia administration during this stay Category 2: Patient has SUSPECTED Obstructive Sleep Apnea, and HAS received any narcotic , sedative or anesthesia administration during this stay. Category 3: Patient has SUSPECTED Obstructive Sleep Apnea and HAS NOT received narcotic, sedative or anesthesia administration during this stay. Category 4: Outpatient in Procedural Areas with known sleep apnea or who screen positive for High Risk via the STOP/BANG questionnaire. Exam Exam Vital Signs Vital Signs Date Time Temp Pulse Resp B/P Pulse Ox O2 Delivery O2 Flow Rate FiO2 09/27/16 06:41 36.9 84 16 128/80 95 Room Air General Appearance: Alert, Oriented X3, Cooperative, No Acute Distress HEENT/AIRWAY: MP 2 Lungs: Clear to Auscultation, Normal Air Movement Heart: Exam Unremarkable, Regular Rate/Rhythm, No Murmurs/Rubs/Gallops Meds/Labs/Diagnostics Labs Test 09/24/16 23:57 09/25/16 07:41 09/27/16 05:50 Prothrombin Time 11.3sec (8.1-12.5) Prothromb Time International Ratio 1.05ratio Hemoglobin A1c 5.5% (4.8-5.6) Hold [place] Top Tube Received (Received) Urine Color Yellow (YELLOW) Urine Appearance Clear (CLEAR,HAZY) Urine pH 5.5 (5.0-8.0) Urine Specific [place] 1.025 (1.003-1.035) Urine Protein Negativemg/dL (NEG,TRACE) Urine Glucose (UA) Negativemg/dL (NEGATIVE) Urine Ketones Negativemg/dL (NEGATIVE) Urine Occult Blood Negative (NEGATIVE) Urine Nitrite Negative (NEGATIVE) Urine Bilirubin Negative (NEGATIVE) Urine Urobilinogen Normalmg/dL (NORMAL) Urine Leukocyte Esterase Negative (NEGATIVE) Urine RBC 0-2/hpf (0-2) Urine WBC 0-5/hpf (0-5) Urine Epithelial Cells Occasional/hpf (NONE-MOD) Urine Crystals None seen (NONE SEEN) Urine Bacteria Few/hpf (NONE-FEW) Urine Hyaline Casts None/lpf (NONE) Urine Granular Casts None seen (NONE SEEN) Urine Waxy Casts None seen (NONE SEEN) Urine Red Blood Cell Casts None seen (NONE SEEN) Urine White Blood Cell Casts None seen (NONE SEEN) Urine Mucus None seen (None Seen) Urine Trichomonas None seen (NONE SEEN) Urine Yeast None (NONE SEEN) Urinalysis Comment None Urine Culture Reflexed Not indicated White Blood Count 4.0th/mm3 (3.8-10.1) Red Blood Count 3.40mil/mm3 (3.90-5.20) Hemoglobin 11.7g/dL (12.0-15.6) Hematocrit 35.7% (35.0-46.0) Mean Corpuscular Volume 105.0fL (81-100) Mean Corpuscular Hemoglobin 34.4pg (27.0-35.0) Mean Corpuscular Hemoglobin Concent 32.8% (32.0-37.0) Red Cell Distribution Width 12.4% (12.3-15.4) Platelet Count 106bil/L (150-400) Neutrophils (%) (Auto) 54.2% (40-74) Lymphocytes (%) (Auto) 32.2% (14-46) Monocytes (%) (Auto) 10.8% (4-12) Eosinophils (%) (Auto) 2.0% (0-5) Basophils (%) (Auto) 0.5% (0-3) Sodium Level 140mEq/L (134-144) Potassium Level 3.7mEq/L (3.5-5.2) Chloride Level 102mEq/L (97-108) Carbon Dioxide Level 28mmol/L (18-29) Blood Urea Nitrogen 5mg/dL (8-27) Creatinine 0.54mg/dL (0.57-1.00) Estimat Glomerular Filtration Rate 161mL/min (>59) Glucose Level 106mg/dL (60-99) Calcium Level 7.7mg/dL (8.5-10.1) Magnesium Level 1.9mg/dL (1.6-2.6) Total Bilirubin 0.6mg/dL (0.0-1.2) Aspartate Amino Transf (AST/SGOT) 24U/L (0-50) Alanine Aminotransferase (ALT/SGPT) 25U/L (0-32) Alkaline Phosphatase 48U/L (25-165) Total Protein 5.1g/dL (6.4-8.4) Albumin 3.1g/dL (3.4-5.0) Plan Impression Patient chart reviewed, patient interviewed and anesthestic plan with risks, benefits, and alternatives discussed, and informed consent obtained. ASA Physical Status: ASA2 Mod Systemic Disease Anesthetic Plan: GA Bene/Risks/Altern/Consents: Yes HP Complete Prior to Induction: Yes Tj Salas MD Sep 27, 2016 10:43
--- NOTE | 2016-09-27 11:15 | NUR ---
To OR Pt to OR at 1100. Report given to RN. PO Atenolol given this morning, pt NPO since midnight except for this. Pain well controlled with 2mg IV Morphine and nausea controlled with 8mg Zofran at 0930.
[2016-09-27] MEDS ORDERED: Lactated Ringer's 1,000 ML IV ONE (11:17)
[2016-09-27] MEDS ORDERED: Lactated Ringer's 1,000 ML IV SCH (11:31)
[2016-09-27] MEDS ORDERED: Lactated Ringer's 500 ML IV PRN (11:31)
[2016-09-27] MEDS ORDERED: Dexamethasone 4 mg/mL Inj IVPUSH PRN (11:35)
[2016-09-27] MEDS ORDERED: Labetalol 5 mg/mL 4 mL Inj IV PRN (11:35)
[2016-09-27] MEDS ORDERED: MetoCLOpramide 5 mg/mL 2 mL Inj IVPUSH PRN (11:35)
[2016-09-27] MEDS ORDERED: Atropine 0.4 mg/mL Inj IVPUSH PRN (11:35)
[2016-09-27] MEDS ORDERED: Phenylephrine 10,000 mCg/mL Inj IVPUSH PRN (11:35)
[2016-09-27] MEDS ORDERED: HYDROmorphone 1 mg/mL Inj IVPUSH PRN (11:35)
[2016-09-27] MEDS ORDERED: EPHEDrine Sulfate 50 mg/mL Inj IVPUSH PRN (11:35)
[2016-09-27] MEDS ORDERED: Ondansetron 2 mg/mL 2 mL Inj IVPUSH PRN (11:35)
[2016-09-27] MEDS ORDERED: fentaNYL-PF 50 mCg/mL 2 mL Inj IVPUSH PRN (11:35)
[2016-09-27] MEDS ORDERED: hydrALAZINE 20 mg/mL Inj IVPUSH PRN (11:35)
--- NOTE | 2016-09-27 12:04 | PCM.ANEP1 ---
Post Anesthesia Phase 1 PACU Phase 1 Assessment Date of Service: Sep 26, 2016 Vital Signs Vital Signs Date Time Temp Pulse Resp B/P Pulse Ox O2 Delivery O2 Flow Rate FiO2 09/27/16 11:59 36.9 74 16 117/75 100 Simple Mask 8 09/27/16 06:41 36.9 84 16 128/80 95 Room Air Anesthetic Administered: GA Level of Alertness: Awake, talking [place]'s with Equal Strength: Yes Pain: No Pain Scale Score: 6 Nausea or Vomiting: No Oxygen Delivery: Simple Mask Lungs: Clear to Auscultation, Normal Air Movement Tj Salas MD Sep 27, 2016 12:04
--- NOTE | 2016-09-27 12:04 | PCM.ANEP2 ---
Post Anesthesia Evaluation ASA/CMS Post Anesthesia VS in Patient's Normal Range?: Yes Resp Stable; Airway Patent?: Yes CV Function & Hydration Stable: Yes Mental Status Recovered?: Yes Pain control Satisfactory?: Yes N/V Control Satisfactory?: Yes Tj Salas MD Sep 27, 2016 12:04
--- NOTE | 2016-09-27 12:23 | PCM.ORTHOB ---
Immediate Operative Note Date of Service: Sep 27, 2016 Pre Operative Diagnosis Right ankle trimalleolar fracture dislocation Post Operative Diagnosis Same Procedure Right ankle closed reduction and application of posterior splint Surgeon Surgeon: Theo Sainz M.D. Assistants: Lázaro Humphrey PA-C Findings The skin about the right ankle was intact but remarkable for moderate swelling circumferentially. A 5 cm x 2 cm "figure 8" shaped fracture blister was notable medially at the level of the distal tibial metaphyseal diaphyseal junction. No other fracture blisters were noted. A comminuted, unstable, displaced and laterally dislocated right ankle trimalleolar fracture was confirmed with intraoperative fluoroscopic views. The trimalleolar fracture was noted to be in significantly improved position and the lateral dislocation concentrically reduced following our closed reduction maneuver and application of right short leg cast with stirrup extensions. Grafts, Implants: None Complications There were no periprocedural complications identified. Condition Stable Anesthetic Administered: GA Drains: None Catheters: None Output, Estimated Blood Loss: 0 Blood Admin during surgery: No Surgical Cast or Splint: Well-padded Short Leg Splint Surgical Specimen Removed: No Surgical Specimen sent to Path: No Post Operative Plan The patient will be readmitted to the hospital for pain control and close observation over the next 24 hours in order to optimize resolution of swelling of the soft tissue envelope about her right ankle. The patient will be restricted from weightbearing through her right lower extremity until further notice. The patient will continue to keep her right foot and ankle elevated when at rest to encourage resolution of swelling. The patient will present to the orthopedic clinic within the next week to see her original surgeon, Seth Hargrove M.D. Definitive plans for right ankle open reduction and internal fixation will be made at that time. Theo Sainz MD Sep 27, 2016 12:23
--- NOTE | 2016-09-27 12:33 | PCM.ORTHOP ---
Orthopedic Operative Report Date of Service: Sep 27, 2016 Pre Operative Diagnosis Right ankle trimalleolar fracture dislocation Post Operative Diagnosis Same Procedure Right ankle closed reduction and application of posterior splint Surgeon Surgeon: Theo Sainz M.D. Assistants: Lázaro Humphrey PA-C Indication for Procedure The patient is a 65-year-old woman who sustained a closed, isolated, neurovascularly intact right ankle trimalleolar fracture dislocation 2016. The patient had a significant amount of right ankle soft tissue swelling associated with the injury and attempts to provisionally reduce her right ankle and splint the ankle to stabilize it while awaiting for resolution of swelling of the right ankle soft tissue envelope were incompletely successful. The patient presents today for attempt at closed reduction of her right ankle trimalleolar fracture dislocation under an anesthetic and application of short leg posterior splint. Findings The skin about the right ankle was intact but remarkable for moderate swelling circumferentially. A 5 cm x 2 cm "figure 8" shaped fracture blister was notable medially at the level of the distal tibial metaphyseal diaphyseal junction. No other fracture blisters were noted. A comminuted, unstable, displaced and laterally dislocated right ankle trimalleolar fracture was confirmed with intraoperative fluoroscopic views. The trimalleolar fracture was noted to be in significantly improved position and the lateral dislocation concentrically reduced following our closed reduction maneuver and application of right short leg cast with stirrup extensions. Details of Procedure The patient was brought to the OR and given a general anesthetic. She is placed in the supine position and her previous right short-leg posterior splint was carefully removed. The patient's right ankle and lower extremity were carefully examined. We found the patient to have a 5 x 2 cm medial ankle fracture blister with the skin about the ankle otherwise was noted to be intact. There was a moderate amount of circumferential soft tissue swelling. A closed reduction maneuver of the right ankle was performed emphasizing longitudinal traction and varus to valgus distraction as the foot was reduced distally beneath the ankle mortise. Satisfactory movement in response to the aforementioned maneuver was appreciated and intraoperative fluoroscopic views confirmed that a satisfactory reduction of the trimalleolar fracture with concentric reduction of the tibiotalar joint and mandaen of the ankle mortise had been achieved. We then placed the patient into a well-padded and well molded right short leg posterior splint was stripped extensions maintaining the ankle and varus and near plantar-grade position. The patient was then transferred to her postoperative bed and taken back to PACU in stable and satisfactory condition. There were no complications. Patient tolerated the procedure well. Grafts, Implants: None Complications There were no periprocedural complications identified. Condition Stable Anesthetic Administered: GA Drains: None Catheters: None Output, Estimated Blood Loss: 0 Blood Admin during surgery: No Surgical Cast or Splint: Well-padded Short Leg Splint Surgical Specimen Removed: No Specimen sent to Pathology: No Post Operative Plan The patient will be readmitted to the hospital for pain control and close observation over the next 24 hours in order to optimize resolution of swelling of the soft tissue envelope about her right ankle. The patient will be restricted from weightbearing through her right lower extremity until further notice. The patient will continue to keep her right foot and ankle elevated when at rest to encourage resolution of swelling. The patient will present to the orthopedic clinic within the next week to see her original surgeon, Seth Hargrove M.D. Definitive plans for right ankle open reduction and internal fixation will be made at that time. copies to: Skinny Blackwood MD; Seth Hargrove MD; Theo Sainz MD, Michael G.E MD Sep 27, 2016 12:33
[2016-09-27] MEDS ORDERED: diphenhydrAMINE 25 mg Capsule PO PRN (12:40)
[2016-09-27] MEDS ORDERED: Sodium Biphos-Phos 133 mL Enema RECTAL PRN (12:40)
[2016-09-27] MEDS ORDERED: Magnesium Hydroxide 10 mL Oral Concentration PO PRN (12:40)
[2016-09-27] MEDS ORDERED: Polyethylene Glycol (PEG) 17 Gm Powder PO PRN (12:40)
--- NOTE | 2016-09-27 13:53 | DRSVH ---
PROCEDURE: X-RAY RIGHT ANKLE, MINIMUM THREE VIEWS ([id number]) INDICATIONS: postop TECHNIQUE: 3 views of the ankle were acquired. COMPARISON: [facility], CR, XR ANKLE 2VW RT, 09/25/2016, 0:16. FINDINGS: Bones: A bimalleolar or trimalleolar fracture subluxation on these images through plaster appears to be nearly anatomically reduced. Soft tissues: No tibiotalar joint effusion. Achilles tendon appears normal. IMPRESSION: Near anatomic reduction of the bi or tri-malleolar fracture subluxation Dictated by: Jh Padilla M.D. on 09/27/2016 at 13:48 Approved by: Jh Padilla M.D. on 09/27/2016 at 13:51
[2016-09-27] MEDS ORDERED: Promethazine Inj 12.5 MG in 0.9% Sodium Chloride 50 ML IV PRN (14:10)
[2016-09-27] MEDS ORDERED: 0.9% Sodium Chloride 250 ML ONE (14:27)
[2016-09-27] MEDS: Sodium Chloride LOK Flush 10 mL Syringe IV SCH ×3 (16:19→23:22)
--- NOTE | 2016-09-27 18:40 | PCM.PNMED ---
Subjective Date of Service Sep 27, 2016 Subjective Patient was seen after surgery. She had no complaints of pain, however was still slightly sedated from the surgery. Patient complained of nausea and was given IV Zofran. She still complained of nausea 2-1/2 hours later therefore IV Phenergan was ordered to alternate with the IV Zofran. Exam Vital Signs Vital Sign - Last Date Time Temp Pulse Resp B/P Pulse Ox O2 Delivery O2 Flow Rate FiO2 09/27/16 13:55 Room Air 09/27/16 13:02 36.7 73 16 153/91 96 09/27/16 11:59 8 Intake and Output 09/26/16 09/26/16 09/27/16 Cumulative From/Thru 15:00 23:00 07:00 09/24/16 22:27 - 09/27/16 06:41 Intake Total 2518 ml 1602 ml 8015 ml Output Total 800 ml 750 ml 2800 ml Balance 1718 ml 852 ml 5215 ml Intake Oral 1918 ml 850 ml 4568 ml IV Total 600 ml 752 ml 3447 ml Output Urine Total 800 ml 750 ml 2800 ml # Voids 3 # Bowel Movements 1 0 1 Exam General: Patient is supine in bed after surgery and does not have any pain at present time but complains of nausea, she is otherwise in no apparent distress. HEENT: Head is atraumatic and normocephalic. Eyes: Pupils are equally round and reactive to light and accommodation. Extraocular muscles are intact. Sclera are white, anicteric. Subconjunctival mucosa is pink. Ears and nose are unremarkable. Oropharynx: There is no mucosal lesions, there is no thrush, there is no pharyngitis. Neck: Is supple, there are no nodes, or masses or tenderness. Chest: Is clear to auscultation and percussion. There are no rales, rhonchi, wheezes or rubs. Heart: Rate, rhythm is regular. There is no murmur, rub or gallop. Abdomen: Good bowel sounds are present. Abdomen is obese, soft, nontender, no organomegaly or masses were appreciated. Extremities: The right lower extremity is in a cast. The toes are now lined up with her knee. She has full motion of her toes. Her toes remained well perfused. Otherwise there is no edema, there is no cellulitis, no rash. Neurologic: There are no focal neurological deficits. Cranial nerves II through XII are intact. There are no sensory or motor deficits. Psychiatric: Patients mood is calm and shows no sign of agitation. Genital: Deferred Rectal: Deferred Lab and Diagnostics Result Diagram: 09/27/16 0550 09/27/16 0550 X-Rays, CTs and MRIs PROCEDURE: X-RAY RIGHT ANKLE, MINIMUM THREE VIEWS ([id number]) INDICATIONS: postop TECHNIQUE: 3 views of the ankle were acquired. COMPARISON: [facility], CR, XR ANKLE 2VW RT, 09/25/2016, 0:16. FINDINGS: Bones: A bimalleolar or trimalleolar fracture subluxation on these images through plaster appears to be nearly anatomically reduced. Soft tissues: No tibiotalar joint effusion. Achilles tendon appears normal. IMPRESSION: Near anatomic reduction of the bi or tri-malleolar fracture subluxation Dictated by: Jh Padilla M.D. on 09/27/2016 at 13:48 Approved by: Jh Padilla M.D. on 09/27/2016 at 13:51 12-lead ECG Normal sinus rhythm, rate of 91 Assessment & Plan Acute closed right ankle fracture secondary to mechanical ground level fall, present on admission, ongoing -EKG was normal, did not demonstrate any arrhythmias. -Patient has remained hemodynamically stable, no evidence of hypotension -Xrays demonstrate a complex, trimalleolar right ankle fracture/dislocation is present with roughly 1/4 bone shaft diameter of lateral subluxation of the talus relative to the tibial plafond. There is moderate lateral displacement of the distal fibular fracture component as well as the tip of the medial malleolus. Minimal displacement of the posterior malleolar component. Repeat x -ray showed improved alignment -Ankle was reduced in the ER by ER physician -Ortho was consulted and placed a new cast/splint yesterday. However the right foot appeared to be deviated laterally again in comparison to the remainder of the right lower extremity. I re-consulted orthopedics Dr. Theo Sainz was artist consultant. Dr. Theo Sainz was kind enough to see the patient reviewed the x- rays and go over the case with myself and the patient. It was decided that the patient would need to go to the operating room for closed reduction and casting of the right lower extremity ankle fracture. Which was performed today. -IV fentanyl was not effective in controlling the patient's pain. However IV morphine appeared to control the patient's pain. We will continue IV morphine for pain control postoperatively. -Regular diet as tolerated when patient's nausea is under control. Will add IV Phenergan to IV Zofran for [id number] every 3 hour when necessary nausea control. -We will continue IVF NS 100mls/hr to 0.9 normal saline with 20 mEq of KCl at 75 mL an hour for maintenance fluid as patient will be nothing by mouth after midnight.. -Physical therapy evaluation ordered. Patient lives alone and is in considerable pain. She has a pain contract with her primary care physician. Acute hypokalemia, present on admission, ongoing -Potassium 3.2 on admission this has been corrected -40meq KCl IV given -We will continue to monitor with a.m. labs and correct as needed. Transaminitis, chronicity unknown, present on admission, ongoing and resolving -AST and ALT normalized -No records to compare previous values -Continue to monitor with AM labs Chronic macrocytosis with progressive anemia, present on admission, ongoing -MCV of 101.2 on admission now over 105. Patient also now anemic. Will order anemia workup for a.m. -Records demonstrate elevation in 2012 -May be due to alcohol use -Recommend outpatient follow up Chronic hypertension, present on admission, ongoing, presumed stable. - Continue atenolol and hydrochlorothiazide. - We will monitor electrodes closely. 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 - Continue proton pump inhibitor Protonix. PCP: Dr Blackwood who has a pain medicine contract with the patient. Patient is not to have any narcotics prescribed by any other doctor. Code Status: DNR/DNI. Discussed and confirmed with patient DVT prophylaxis: Heparin q 8hrs Disposition: Patient is likely to go home tomorrow after pain and nausea are under control. Currently patient is still requiring IV narcotics and IV antiemetics. Pain Evaluation: Adequate Pain Control GI Prophylaxis: Proton Pump Inhibitor VTE Prophylaxis: Sub-Q Heparin (Unfractionated) Resuscitation Status: DNR/DNI:Do Not Resuscitate/Intubate Seth Alanis MD Sep 27, 2016 18:40
[2016-09-27] MEDS: Senna-Docusate 8.6-50 mg Tablet PO SCH (20:30)
[2016-09-27] MEDS: LORazepam 1 mg Tablet PO PRN (22:10)
[2016-09-28] MEDS: 0.9% NaCl + KCl 20 mEq/L 1,000 ML IV SCH (00:25)
[2016-09-28] MEDS: Heparin 5,000 Unit/mL Inj SUBQ SCH ×2 (00:39→08:30)
[2016-09-28 00:51] VITALS: BP 101/66; PULSE 72; RESP 20; O2SAT 96
--- NOTE | 2016-09-28 03:06 | NUR ---
PAIN/GI; pt denies nausea this shift. States pain is "so much better" now. Two vicodan given- pt fell asleep soon after.
[2016-09-28 04:01] VITALS: BP 106/76; PULSE 74; RESP 18; O2SAT 95
[2016-09-28] MEDS: HYDROcodone-APAP 5-325 mg Tablet PO PRN (05:54)
[2016-09-28 06:39] LABS: BASOPHILS % (AUTO) 0.1 % (0-3); EOSINOPHILS % (AUTO) 0.1 % (0-5); MONOCYTES % (AUTO) 8.2 % (4-12); Mean Corpuscular Hemoglobin 34.5 pg (27.0-35.0); Mean Corpuscular Volume 104.6 fL (81-100); NEUTROPHILS % (AUTO) 68.4 % (40-74); Platelet Count 136 bil/L (150-400)
[2016-09-28 07:06] LABS: Magnesium 1.9 mg/dL (1.6-2.6); Phosphorus 2.8 mg/dL (2.5-4.9); Unsaturated Iron Binding 188.3 ug/dL
[2016-09-28] MEDS: Pantoprazole 40 mg ER24 Tablet PO SCH (07:30)
[2016-09-28] MEDS: Senna-Docusate 8.6-50 mg Tablet PO SCH (08:30)
--- NOTE | 2016-09-28 09:13 | NUR ---
Social Work- Readiness for Discharge Data: EMR reviewed. Pt is on day 3 of hospitalization for fracture dislocation of the right ankle per H&P. Pt is medically stable and may discharge later today. SW followed up with pt at the bedside to discuss HH and discharge plan. SW explained PT's recommendation of home with HH (as of 09/27). Pt denies needing home health at this time, as she has friends who are willing and able to assist. Pt has all necessary DME. LEÓN wrote plan on whiteboard. Pt agreeable to plan. Pt to discharge home with friend to transport via POV. No anticipated discharge needs. SW continues to follow. Assessment: [place]. Plan: Pt denies HH at this time. Pt to discharge home with friend to transport via POV. No anticipated discharge needs. LEÓN continues to follow. EPIFANIO Damon
--- NOTE | 2016-09-28 09:26 | PCM.DIMED ---
Discharge Instructions Date of Service Sep 28, 2016 Dates of Hospitalization Sep 25, 2016 at 01:01 Diet Heart Healthy Activity Other (No weight bearing on the right lower extremity) Call your provider Fever or Chills, Shortness of breath, Bleeding, Chest pain, Vomitting, Excessive diarrhea, Weakness (unilateral) Patient Instructions Follow-up Provider: Skinny Blackwood MD Follow-up with PCP in: 1 week Provider: Seth Hargrove MD Follow-up in: 1 week (Patient has appointment October 01 at 8:30am) Seth Alanis MD Sep 28, 2016 09:26
[2016-09-28] MEDS ORDERED: POLY17PO6 PO (09:28)
--- NOTE | 2016-09-28 10:40 | NUR ---
Social Work- Discharge Data: EMR reviewed. Pt is on day 3 of hospitalization for fracture dislocation of the right ankle per H&P. Pt is medically stable and will discharge today. Pt to discharge home with friend to transport via POV. No discharge needs. Assessment: [place] base. Plan: Pt to discharge home with friend to transport via POV. No discharge needs. EPIFANIO Damon
--- NOTE | 2016-09-28 11:11 | NUR ---
Discharge Orders for discharge were received. The patient was made aware of the plan to discharge and was agreeable to go. The patient was given information regarding her diagnosis and treatment, signs and symptoms to be aware of, mobility limitations, care instructions regarding her right lower extremity, information on new medications, scripts and follow up directions. The patient signified understanding of this information and her asymptomatic IV was removed intact. The patient was then dressed in her own clothing and her belongings were gathered. The patient then ambulated into a wheelchair and was wheeled to the main entrance where she ambulated into an awaiting private vehicle. At the time of discharge the patient was alert and oriented, pain at a tolerable level, denies nausea. Right leg CSM intact, dressing clean and dry.
--- NOTE | 2016-09-28 19:28 | PCM.DC.MED ---
Discharge Summary Date of Service Sep 28, 2016 Dates of Hospitalization Date of Hospital Admission Sep 25, 2016 at 01:01 Date of Discharge: Sep 28, 2016 Providers: Admitting Physician: Rolan Shine MD Primary Care Physician: Skinny Blackwood MD Attending Physician: Rolan Shine MD Diagnosis at Time of Discharge Diagnosis at Time of Discharge Trimalleolar fracture of the right ankle Consultations Orthopedic surgery service Procedures XRay, CTs & MRIs PROCEDURE: X-RAY RIGHT ANKLE, MINIMUM THREE VIEWS ([id number]) INDICATIONS: postop TECHNIQUE: 3 views of the ankle were acquired. COMPARISON: [facility], CR, XR ANKLE 2VW RT, 09/25/2016, 0:16. FINDINGS: Bones: A bimalleolar or trimalleolar fracture subluxation on these images through plaster appears to be nearly anatomically reduced. Soft tissues: No tibiotalar joint effusion. Achilles tendon appears normal. IMPRESSION: Near anatomic reduction of the bi or tri-malleolar fracture subluxation Dictated by: Jh Padilla M.D. on 09/27/2016 at 13:48 Approved by: Jh Padilla M.D. on 09/27/2016 at 13:51 ECG 12 Lead Normal sinus rhythm, rate of 91 Brief History 65-year-old female patient with history of hypertension, insomnia, neuropathy, GERD who presented to the ER following mechanical ground-level fall and right ankle pain. Patient reports that she got up in the middle the night to go to her kitchen to get a snack, and was wearing socks and slipped on the linoleum. Patient reports that she suspects she fell to her side and instantly felt significant pain on her right ankle. Patient denies any loss of consciousness at the time of her fall. Patient reports that she does not use any assistive devices for walking, such as a cane or walker. Patient reports that she is independent at baseline, and independent in all of her ADLs. Patient denies any chest pain, shortness of breath, nausea, vomiting, diarrhea, palpitations, dizziness or other symptoms. Patient states her only complaint is right ankle pain. Patient reports that she did take all of her nighttime medications, which include trazodone, lorazepam, gabapentin. Vital signs in the ER, temperature 37, pulse 77, respiratory rate 18, blood pressure 126/67, pulse ox 97 on room air. Patient was admitted to the hospital service for further evaluation and treatment. Hospital Course Acute closed right ankle fracture secondary to mechanical ground level fall, present on admission, ongoing -EKG was normal, did not demonstrate any arrhythmias. -Patient has remained hemodynamically stable, no evidence of hypotension -Xrays demonstrate a complex, trimalleolar right ankle fracture/dislocation is present with roughly 1/4 bone shaft diameter of lateral subluxation of the talus relative to the tibial plafond. There is moderate lateral displacement of the distal fibular fracture component as well as the tip of the medial malleolus. Minimal displacement of the posterior malleolar component. Repeat x -ray showed improved alignment -Ankle was reduced in the ER by ER physician -Ortho was consulted and placed a new cast/splint yesterday. However the right foot appeared to be deviated laterally again in comparison to the remainder of the right lower extremity. I re-consulted orthopedics Dr. Theo Sainz was automation tester. Dr. Theo Sainz was kind enough to see the patient reviewed the x- rays and go over the case with myself and the patient. It was decided that the patient would need to go to the operating room for closed reduction and casting of the right lower extremity ankle fracture. Patient is postop day #1 and very pleased with the results. Her pain is much better controlled.. -IV fentanyl was not effective in controlling the patient's pain. However IV morphine appeared to control the patient's pain. Today she states the pain is 1 /10 of 1 and should be able to easily be controlled with oral analgesics as she takes at home. -Regular diet as tolerated when patient's nausea is under control. Will add IV Phenergan to IV Zofran for [id number] every 3 hour when necessary nausea control. -Patient was given hydration with IVF NS 100mls/hr to 0.9 normal saline with 20 mEq of KCl at 75 mL an hour for maintenance fluid preoperatively. - The patient has a pain contract with her primary care physician. Patient is stable to go home today and continue to acquire analgesics from her primary care physician. Acute hypokalemia, present on admission, ongoing -Potassium 3.2 on admission this has been corrected -40meq KCl IV given Transaminitis, chronicity unknown, present on admission, which has resolved. -AST and ALT normalized -No records to compare previous values -Continue to monitor as an outpatient Chronic macrocytosis with progressive anemia, present on admission, ongoing -MCV of 101.2 on admission now over 105. Patient also now anemic. Will order anemia workup for a.m. -Records demonstrate elevation in 2012 -May be due to alcohol use -Recommend outpatient follow up as B12 and folate levels were ordered here and are still pending. Chronic hypertension, present on admission, ongoing, presumed stable. - Continue atenolol and hydrochlorothiazide. - Recommend continuing to monitor electrolytes closely as an outpatient. 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 - Continue proton pump inhibitor Protonix. PCP: Dr Blackwood who has a pain medicine contract with the patient. Patient is not to have any narcotics prescribed by any other doctor. Code Status: DNR/DNI. Discussed and confirmed with patient DVT prophylaxis: Heparin q 8hrs Disposition: Patient is being discharged home today. Exam Vital Signs (Last) Date Time Temp Pulse Resp B/P Pulse Ox O2 Delivery O2 Flow Rate FiO2 09/28/16 04:01 37.0 74 18 106/76 95 Room Air 09/27/16 11:59 8 Exam General: Patient is in bed postoperatively and is feeling much better. She states her pain is approximately 1/10 about a was yesterday and the day before. She is very pleased that she went to the operating room for closed reduction of her ankle fracture. She is in good spirits. HEENT: Head is atraumatic and normocephalic. Eyes: Pupils are equally round and reactive to light and accommodation. Extraocular muscles are intact. Sclera are white, anicteric. Subconjunctival mucosa is pink. Ears and nose are unremarkable. Oropharynx: There is no mucosal lesions, there is no thrush, there is no pharyngitis. Neck: Is supple, there are no nodes, or masses or tenderness. Chest: Is clear to auscultation and percussion. There are no rales, rhonchi, wheezes or rubs. Heart: Rate, rhythm is regular. There is no murmur, rub or gallop. Abdomen: Good bowel sounds are present. Abdomen is obese, soft, nontender, no organomegaly or masses were appreciated. Extremities: The right lower extremity is in a cast. The toes are still lined up with her knee. She has full motion of her toes. Her toes remained well perfused. Otherwise there is no edema, there is no cellulitis, no rash. Neurologic: There are no focal neurological deficits. Cranial nerves II through XII are intact. There are no sensory or motor deficits. Psychiatric: Patients mood is calm and shows no sign of agitation. Genital: Deferred Rectal: Deferred Test 09/24/16 23:57 09/25/16 07:41 09/28/16 05:50 Prothrombin Time 11.3sec (8.1-12.5) Prothromb Time International Ratio 1.05ratio Hemoglobin A1c 5.5% (4.8-5.6) Hold Buckley Top Tube Received (Received) Urine Color Yellow (YELLOW) Urine Appearance Clear (CLEAR,HAZY) Urine pH 5.5 (5.0-8.0) Urine Specific [place] 1.025 (1.003-1.035) Urine Protein Negativemg/dL (NEG,TRACE) Urine Glucose (UA) Negativemg/dL (NEGATIVE) Urine Ketones Negativemg/dL (NEGATIVE) Urine Occult Blood Negative (NEGATIVE) Urine Nitrite Negative (NEGATIVE) Urine Bilirubin Negative (NEGATIVE) Urine Urobilinogen Normalmg/dL (NORMAL) Urine Leukocyte Esterase Negative (NEGATIVE) Urine RBC 0-2/hpf (0-2) Urine WBC 0-5/hpf (0-5) Urine Epithelial Cells Occasional/hpf (NONE-MOD) Urine Crystals None seen (NONE SEEN) Urine Bacteria Few/hpf (NONE-FEW) Urine Hyaline Casts None/lpf (NONE) Urine Granular Casts None seen (NONE SEEN) Urine Waxy Casts None seen (NONE SEEN) Urine Red Blood Cell Casts None seen (NONE SEEN) Urine White Blood Cell Casts None seen (NONE SEEN) Urine Mucus None seen (None Seen) Urine Trichomonas None seen (NONE SEEN) Urine Yeast None (NONE SEEN) Urinalysis Comment None Urine Culture Reflexed Not indicated White Blood Count 8.1th/mm3 (3.8-10.1) Red Blood Count 3.68mil/mm3 (3.90-5.20) Hemoglobin 12.7g/dL (12.0-15.6) Hematocrit 38.5% (35.0-46.0) Mean Corpuscular Volume 104.6fL (81-100) Mean Corpuscular Hemoglobin 34.5pg (27.0-35.0) Mean Corpuscular Hemoglobin Concent 33.0% (32.0-37.0) Red Cell Distribution Width 12.4% (12.3-15.4) Platelet Count 136bil/L (150-400) Neutrophils (%) (Auto) 68.4% (40-74) Lymphocytes (%) (Auto) 22.7% (14-46) Monocytes (%) (Auto) 8.2% (4-12) Eosinophils (%) (Auto) 0.1% (0-5) Basophils (%) (Auto) 0.1% (0-3) Reticulocyte Count,Calculated 4.0% (0.6-2.6) Sodium Level 140mEq/L (134-144) Potassium Level 3.8mEq/L (3.5-5.2) Chloride Level 102mEq/L (97-108) Carbon Dioxide Level 24mmol/L (18-29) Blood Urea Nitrogen 7mg/dL (8-27) Creatinine 0.68mg/dL (0.57-1.00) Estimat Glomerular Filtration Rate 124mL/min (>59) Glucose Level 109mg/dL (60-99) Calcium Level 8.1mg/dL (8.5-10.1) Phosphorus Level 2.8mg/dL (2.5-4.9) Magnesium Level 1.9mg/dL (1.6-2.6) Iron Level 100ug/dL (35-150) Total Iron Binding Capacity 288ug/dL (250-450) Percent Iron Saturation 35%sat (15-50) Unsaturated Iron Binding 188.3ug/dL Ferritin 344ng/mL (13-150) Total Bilirubin 0.8mg/dL (0.0-1.2) Aspartate Amino Transf (AST/SGOT) 37U/L (0-50) Alanine Aminotransferase (ALT/SGPT) 35U/L (0-32) Alkaline Phosphatase 62U/L (25-165) Total Protein 6.0g/dL (6.4-8.4) Albumin 3.8g/dL (3.4-5.0) Discharge Medications Discharge Medications Atenolol (Atenolol) 25 Mg Tablet 25 MG PO DAILY (Reported) Estradiol Patch (Isa) 1 Each Patch.tdsw 1 EACH TRANSDERM WEEKLY (Reported) Gabapentin (Gabapentin) 600 Mg Tablet 600 MG PO HS (Reported) Hydrochlorothiazide (Hydrochlorothiazide) 25 Mg Tablet 12.5 MG PO DAILY ( Reported) Lansoprazole (Lansoprazole) 30 Mg Capsule.dr 15 MG PO DAILY (Reported) Multivitamin (Multivitamins) 1 Each Capsule 1 EACH PO DAILY (Reported) Trazodone (Trazodone) 150 Mg Tablet 200 MG PO HS (Reported) As needed Fluticasone Propionate (Flonase Allergy Relief) 50 Mcg/Actuation Elizabeth.susp 9.9 ML NS BID PRN PRN For Congestion (Reported) Hydrocodone-Acetaminophen 5-325 mg (Hydrocodone-Acetaminophen 5-325 mg) 1 Each Tablet 1-3 TABLET PO DAILY PRN PRN For Pain (Reported) Lorazepam (Lorazepam) 1 Mg Tablet 1-1.5 MG PO HS PRN PRN For Insomnia (Reported ) Polyethylene Glycol 3350 (Miralax) 17 Gm Powd.pack 17 GM PO DAILY PRN PRN For Constipation Prescribed by: CORINA MCKNILEY MD Followup Plan Disposition: Patient is being discharged home today. Discharge Diet: Heart Healthy Discharge Activity: Other (No weight bearing on the right lower extremity) Follow-up Provider: Skinny Blackwood MD Follow-up with PCP in: 1 week Provider: Seth Hargrove MD Follow-up in: 1 week (Patient has appointment October 01 at 8:30am) copies to: Skinny Blackwood MD, Christopher E MD Sep 28, 2016 19:27
[2016-09-29] MEDS ORDERED: ESTRADIOL TOPICAL SCH (08:30)
== END 2016-09-28 11:05 | disposition home or self-care (01) | DRG 563 ==
LOC: SED 22:22 → OBSVTOIN 09-25 01:01 → INTOOBSV 09-25 01:01 → OSC 09-25 01:01
PROVIDERS: ADMIT Hospitalist; ATTEND Hospitalist
PROC: 0QSJXZZ Reposition Right Fibula, External Approach (ICD-10-PCS; principal; 2016-09-27 14:30)
DX: S82.851A Displaced trimalleolar fracture of right lower leg, initial encounter for closed fracture (principal); W18.30XA Fall on same level, unspecified, initial encounter; Y93.01 Activity, walking, marching and hiking; Y92.010 Kitchen of single-family (private) house as the place of occurrence of the external cause; Y99.9 Unspecified external cause status; E87.6 Hypokalemia; R74.0 Nonspecific elevation of levels of transaminase and lactic acid dehydrogenase [LDH]; Z66 Do not resuscitate; K21.9 Gastro-esophageal reflux disease without esophagitis; I10 Essential (primary) hypertension; T36.8X5A Adverse effect of other systemic antibiotics, initial encounter; G62.9 Polyneuropathy, unspecified

== ENCOUNTER 2016-10-02 12:59 | Day surgery (SDC) | payer MEDICARE ==
[~2016-10-02] VITALS: Ht 165.1 cm; Wt 82.7 kg
[2016-10-02] VITALS (11 sets, daily range): BP systolic 134–163; BP diastolic 68–86; PULSE 72–94; RESP 10–18; O2SAT 94–100
--- NOTE | 2016-10-02 10:47 | PCM.HPANE ---
Patient Data Date of Service: Oct 02, 2016 Surgeon Admitting Provider: Attending Provider:Seth Hargrove MD Primary Care Physician:Skinny Blackwood MD Other Provider:Oma Piña Anesthesia Reason for Visit Right Ankle Fracture Ht/WT & BMI Height (Feet): 5 Height (Inches): 5 Weight (Kilograms): 86.2 Body Mass Index 31.00 Allergies Coded Allergies: Penicillins (Verified Allergy, Unknown, UNKNOWN, 10/02/16) celecoxib (Verified Allergy, Unknown, UNKNOWN, 10/02/16) Past Anesthesia History Anesthesia History: Denies:: Anesthesia Reactions, Malignant Hyperthermia Diabetes History Hx Diabetes?: No MRSA MRSA: No Medications Hypertension Medication: Yes (HCTZ) Home Meds Incl Beta Ne: Yes (ATENOLOL) Active Scripts Polyethylene Glycol 3350 (Miralax)17 Gm Powd.pack17 Gm PO DAILY PRN For Constipation #30 Prov:Seth Alanis MD 09/28/16 Reported Medications Gabapentin 600 Mg [id number] Mg PO HS Ref 0 09/25/16 Trazodone 150 Mg Qzmizt745 Mg PO HS Ref 0 09/25/16 Multivitamin (Multivitamins)1 Each Capsule1 Each PO DAILY 09/25/16 Lorazepam 1 Mg Tablet1-1.5 Mg PO HS PRN For Insomnia Ref 0 09/25/16 Lansoprazole 30 Mg Capsule.dr15 Mg PO DAILY #30 CAPSULE Ref 0 09/25/16 Hydrocodone-Acetaminophen 5-325 mg 1 Each Tablet1-3 Tablet PO DAILY PRN For Pain Ref 0 09/25/16 Hydrochlorothiazide 25 Mg Hsccfd81.5 Mg PO DAILY 30 Days Ref 0 09/25/16 Fluticasone Propionate (Flonase Allergy Relief)50 Mcg/Actuation [place].susp9.9 Ml NS BID PRN For Congestion 09/25/16 Estradiol Patch (Isa)1 Each Patch.tdsw1 Each TRANSDERM WEEKLY 09/25/16 Atenolol 25 Mg Brejdt69 Mg PO DAILY #30 TABLET Ref 0 09/25/16 Discontinued Reported Medications Trazodone-Expunged Drug, Do Not Renew! 100 Mg Yqk061 Mg PO HS #30 TAB 10/24/12 FLUTICASONE-Expunged Drug, Do Not Renew! (FLONASE-Expunged Drug, Do Not Renew!) 120 Sprays/16 Gm Aero2 Sprays NA PRN 10/24/12 Hydrocod/APAP-Expunged, Do Not Renew! (VICODIN-Expunged Drug, Do Not Renew)1 Tab Tab1-3 Tab PO DAILY PRN For Pain 10/24/12 Hydrochlorothiazide-Expunged, Do Not Renew! 25 Mg Oaywll72.5 Mg PO DAILY 10/24/12 Lorazepam-Expunged Drug, Do Not Renew! 0.5 Mg Tab1-1.5 Mg PO HSP 10/24/12 Estradiol-Expunged Drug, Do Not Renew! (Ilswjip-Wvb-Xondbeap Drug, Do Not Renew! )1 Patch.bwk Patch.tdsw1 Patch.bwk TD QW Every Tuesdays10/24/12 Lansoprazole-Expunged Drug, Do Not Renew! 15 Mg Capsule.dr15 Mg PO DAILY 10/24/12 Multivitamin (Multi-Vitamin Daily)1 Each Tablet1 Each PO DAILY 10/24/12 Atenolol-Expunged Drug, Do Not Renew! 25 Mg Tab25 Mg PO DAILY 10/24/12 Estradiol Hemihydrt,Micronized (Estradiol)1 Gm Powder1 Gm MC DAILY 10/24/12 History History of ENT Problems?: Yes HEENT History: Positive for:: Cataracts Sinus Problem (S/P RHINOPLASTY) Other HEENT Pertinent History: S/P ZYGOMATIC CHEEK IMPLANTS Hx of Heart Problems?: Yes Cardiovascular History: Positive for:: Hypertension Denies:: Congestive Heart Failure Heart Murmur Other Cardiac History: 09/28/16 PLATELET COUNT 136 Hx of Respiratory Problem?: Yes Respiratory History: Denies:: Tuberculosis Use of C-PAP Machine (SNORES) Hx Neurologic Problems?: Yes Other Neurological Pertinent: C/OF CIPRO-INDUCED NEUROPATHY Hx of GI Problems?: Yes Gastrointestinal History: Positive for:: Heartburn ("every once in a while" HX PUD) Denies:: Diverticulitis (DIVERTICULOSIS) Other GI Pertinent History: S/P APPY Hx of Problems?: No HX of Peritoneal Dialysis: No Female Hx: Positive for:: Problems with Breasts? (S/P BREAST AUGMENTATION, DEFLATION OF B/L BREAST IMPLANTS) Denies:: Currently Endometriosis Pelvic Inflammatory Skin History: Positive for:: History Skin Disorders? (S/P EXC SQUAMOUS CELL CA ON FACE) Denies:: Pressure Ulcers Hx Musculoskeletal Problems?: Yes Musculoskeletal History: Positive for:: Musculoskeletal Trauma (HX FX METATARSAL RT FOOT FX RT ANKLE=CURRENT PROBLEM) Osteoarthritis Denies:: Back Injury (C/OF CHRONIC BACK PAIN) Joint Replacement Hx of Psycho/Social Problems?: No Hx Surgeries?: Yes (APPY,BREAST AUGMENTATION,DEFLATION BREAST IMPLANTS,HYST, RHINOPLASTY,CHEEK I) Hx Any Other Health Problems?: No Other History: Positive for:: Cancer (FACIAL SQUAMOUS CELL CA) Hospitalization (bleeding ulcers) Denies:: Endocrine Disease Thyroid Disease History Blood Transfusions: Positive for:: Blood Transfusions Denies:: Blood Transfuse Reaction Hx Diabetes: No Hx Alcohol Use: YesAlcoholic Drinks Per Day: 12 OZ WINE DAILYHx Substance Use : No Smoking Status: Former Smoker Have You Smoked inLast 12 mo: No Stop/Bang Treated for Sleep Apnea?: No Do You Have a CPAP Machine?: No S-Snoring: Do You Snore Loudly: Yes T-Tired: feel tired, fatigued: Yes O-Obsered: Observed not breath: No P-Blood Pressure: treated: Yes B- Body Mass Index > 35 kg/m2: No A- Age over 50: Yes N- Neck Large Circumference: No G- Gender Male: No HERMAN Total Score: 4 HERMAN Risk Assessment: High Risk, =/>3 Yes Risk Assessment Category Category 1A: Patient has history of documented sleep apnea, and HAS NOT received any narcotic, sedative or anesthesia administration during this stay. Category 1B: Patient has history of documented sleep apnea, and HAS received any narcotic , sedative or anesthesia administration during this stay Category 2: Patient has SUSPECTED Obstructive Sleep Apnea, and HAS received any narcotic , sedative or anesthesia administration during this stay. Category 3: Patient has SUSPECTED Obstructive Sleep Apnea and HAS NOT received narcotic, sedative or anesthesia administration during this stay. Category 4: Outpatient in Procedural Areas with known sleep apnea or who screen positive for High Risk via the STOP/BANG questionnaire. Exam Exam General Appearance: Alert, Oriented X3, Cooperative, No Acute Distress HEENT/AIRWAY: MP 3 Lungs: Clear to Auscultation, Normal Air Movement Heart: Exam Unremarkable, Normal S1, Normal S2, No Murmurs/Rubs/Gallops Plan Impression Patient chart reviewed, patient interviewed and anesthestic plan with risks, benefits, and alternatives discussed, and informed consent obtained. ASA Physical Status: ASA3 Severe Disease Anesthetic Plan: GA, Regional Block (Popliteal/Saphenous blockade at request of surgeon.) Bene/Risks/Altern/Consents: Yes HP Complete Prior to Induction: Yes Kemar Littlejohn DO Oct 02, 2016 10:47
[~2016-10-02 12:59] MED LIST changes: +ATEN25TA PO; -ATENOLOL (*) 2525 MG PO; +Clindamycin 600 mg/50 mL D5W IV ONE; -ESTR1PAT10 TD; +ESTR1PAT44 TRANSDERM; -ESTR1POW11 MC; -FLONASE; +FLUT9.9S NS; +GABA600T2 PO; -HCTZ25 PO; +HYDR-4003 PO; -HYDR1TAB69 PO; +HYDR25TA4 PO; -LANS15CA24 PO; +LANS30CA PO; +LORA1TAB PO; -LRZ.5T1 PO; -MULT-1007 PO; +MULT1CAP33 PO; +POLY17PO6 PO; +TRAZ150T72 PO; -[UNRECOGNIZED DRUG - CODE] PO
[2016-10-02] MEDS ORDERED: fentaNYL-PF 50 mCg/mL 2 mL Inj ONE ×2 (13:00→17:19)
[2016-10-02] MEDS: Lactated Ringer's 1,000 ML IV SCH ×4 (13:07→17:45)
[2016-10-02] MEDS ORDERED: Clindamycin 600 mg/50 mL D5W Premix IV ONE (13:27)
[2016-10-02] MEDS ORDERED: HYDROcodone-APAP 5-325 mg Tablet PO PRN (14:50)
[2016-10-02] MEDS ORDERED: Ketorolac 15 mg/mL Inj IVPUSH ONE (14:50)
--- NOTE | 2016-10-02 14:57 | PCM.ORTHOP ---
Orthopedic Operative Report Date of Service: Oct 02, 2016 Pre Operative Diagnosis right closed ankle fracture, trimalleolar Post Operative Diagnosis Right closed ankle fracture trimalleolar Procedure Right ankle open reduction internal fixation Surgeon Surgeon: Seth Hargrove MD Assistants: Lázaro Humphrey Indication for Procedure Right closed ankle fracture Findings Right trimalleolar equivalent ankle fracture with displaced fibula as well as medial malleolus, <25% posterior mal Details of Procedure Indications: Lucie Mcguire is a 65-year-old female who sustained a right] trimalleolar ankle fracture. A clear explanation was given to the patient regarding the condition present, and the available conservative and surgical options. It was emphasized that the risks and benefits of surgery include but are not limited to infection, wound healing problems, damage to adjacent structures such as nerves, blood vessels and tendons, assisted disability and pain, arthritis, hypersensitivity, deep vein thrombosis, pulmonary embolism, broken hardware, failure of surgery, need for further procedures at time of surgery or later, cast related problems, loss of limb or life. The patient was given an explanation and the patient voiced understanding of what to expect after the procedure or surgery, the limitations in activities of daily living, the likely duration for post operative recovery and the instructions that are to be followed. At the end the patient was invited to seek clarification or ask further questions but there were none. The patient voiced understanding of the entire consultation. Description of Operation: The patient was brought to the operating room. Patient name and surgical site were confirmed. Preoperative antibiotics were given. The patient was placed supine on the operating table. General anesthesia was administered. A well padded tourniquet was placed on the leg. The leg was then prepped and draped in the usual sterile fashion. The leg was exsanguinated and the tourniquet was inflated. The lateral malleolus was addressed first. An incision was made over the lateral ankle. Subcutaneous dissection was performed down to the lateral malleolus. Care was taken to avoid injury to the superficial peroneal nerve. The fracture was cleaned of debris and interposed soft tissue. The fracture was reduced to anatomic alignment using reduction clamps and preliminary fixation techniques. The bone was amenable to lag screw fixation. Fluoroscopy was used to confirm satisfactory reduction. A one-third tubular plate was then placed and secured in position using 3.5 mm fully threaded cortical screws proximally and 3.5 mm locking screws distally. Solid bony purchase was achieved with a combination of locking and nonlocking screws. The medial side was addressed next. A poke hole incision was made over the medial malleolus and centered over the fracture site. The fracture was reduced to anatomic alignment using preliminary fixation techniques and a 1.5 mm K-wire. Fluoroscopy was used to confirm satisfactory reduction. 2 4.0 cannulated screws was used to secure the medial malleolus 4.0 mm long threaded cancellous screw. Stress x-rays were performed which showed widening of the medial joint space. A tight rope was used to secure the syndesmosis after reduction. Final radiographs confirmed anatomic reduction of the fracture, congregation of the ankle mortise, and adequate placement of hardware. The ankle joint was stressed and the syndesmosis was stable along with no subluxation of the joint on the lateral view so the decision was made not to fix the posterior malleolus fracture which was stable. The tourniquet was deflated. Hemostasis was obtained with electrocautery. The wounds were thoroughly irrigated with bulb irrigation. The wounds were then closed in layers. The incisions were cleaned and dressed with Adaptic, gauze, and soft roll. A well padded plaster splint was then placed and wrapped with an Rakan bandage. Estimated blood loss was 15 cc. There were no immediate complications. The patient was transferred to the PACU in stable condition. I was present for the entire procedure. 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 Without the qualified reading assistant being present, it would have extended the operative procedure and made the procedure technically more difficult to perform. Specimens Obtained: none Grafts, Implants: Implants-See Implant Record Complications There were no periprocedural complications identified. Condition Stable Anesthetic Administered: GA Catheters: None Output, Estimated Blood Loss: 15 Blood Admin during surgery: No Surgical Cast or Splint: Well-padded Short Leg Splint Surgical Specimen Removed: No Specimen sent to Pathology: No copies to: Seth Hargrove MD, Christopher L MD Oct 02, 2016 14:57 Surgical Cast or Splint: Well-padded Short Leg Splint Surgical Specimen Removed: No Specimen sent to Pathology: No copies to: Seth Hargrove MD, Christopher L MD Oct 02, 2016 14:57
[2016-10-02] MEDS ORDERED: Bacitracin 50,000 unit Inj IRRIGATION ONE (15:25)
[2016-10-02] MEDS ORDERED: Lactated Ringer's 1,000 ML IV SCH (16:02)
[2016-10-02] MEDS ORDERED: Lactated Ringer's 500 ML IV PRN (16:02)
[2016-10-02] MEDS ORDERED: Ondansetron 2 mg/mL 2 mL Inj IVPUSH PRN (16:05)
[2016-10-02] MEDS ORDERED: Phenylephrine 10,000 mCg/mL Inj IVPUSH PRN (16:05)
[2016-10-02] MEDS ORDERED: Atropine 0.4 mg/mL Inj IVPUSH PRN (16:05)
[2016-10-02] MEDS ORDERED: HYDROmorphone 1 mg/mL Inj IVPUSH PRN (16:05)
[2016-10-02] MEDS ORDERED: MetoCLOpramide 5 mg/mL 2 mL Inj IVPUSH PRN (16:05)
[2016-10-02] MEDS ORDERED: Dexamethasone 4 mg/mL Inj IVPUSH PRN (16:05)
[2016-10-02] MEDS ORDERED: Labetalol 5 mg/mL 4 mL Inj IV PRN (16:05)
[2016-10-02] MEDS ORDERED: EPHEDrine Sulfate 50 mg/mL Inj IVPUSH PRN (16:05)
--- NOTE | 2016-10-02 17:18 | PCM.ANEP1 ---
Post Anesthesia Phase 1 PACU Phase 1 Assessment Date of Service: Oct 02, 2016 Vital Signs Vital Signs Date Time Temp Pulse Resp B/P Pulse Ox O2 Delivery O2 Flow Rate FiO2 10/02/16 13:19 36.2 72 16 146/79 98 Room Air Anesthetic Administered: GA, Regional Block (POP/Saph) Level of Alertness: Awake, talking DE [place] CRUZ's with Equal Strength: Yes Pain: No Oxygen Delivery: Simple Mask Lungs: Clear to Auscultation, Normal Air Movement Dermatome Level: Full Sensation (with sensory block c/w Popliteal/Saphenous block) Kemar Littlejohn DO Oct 02, 2016 17:18
[2016-10-02] MEDS: fentaNYL-PF 50 mCg/mL 2 mL Inj IVPUSH PRN ×2 (17:19→17:25)
--- NOTE | 2016-10-02 17:23 | PCM.ANEP2 ---
Post Anesthesia Evaluation ASA/CMS Post Anesthesia Date of Service: Oct 02, 2016 VS in Patient's Normal Range?: Yes Resp Stable; Airway Patent?: Yes CV Function & Hydration Stable: Yes Mental Status Recovered?: Yes Pain control Satisfactory?: Yes N/V Control Satisfactory?: Yes Kemar Littlejohn DO Oct 02, 2016 17:23
== END 2016-10-02 23:59 | disposition home or self-care (01) ==
LOC: SAS 12:59
PROVIDERS: ATTEND Orthopaedic Surgery
DX: S82.851A Displaced trimalleolar fracture of right lower leg, initial encounter for closed fracture (principal); I10 Essential (primary) hypertension; X58.XXXA Exposure to other specified factors, initial encounter; Y93.01 Activity, walking, marching and hiking; Y92.9 Unspecified place or not applicable; Y99.8 Other external cause status; Z87.891 Personal history of nicotine dependence; Z79.890 Hormone replacement therapy; Z85.828 Personal history of other malignant neoplasm of skin
CPT/HCPCS: 27822; 76001; 76942; C1713; J1170; J2250; J3010; J7120